=== PATIENT | male | born 1990 | race Caucasian/White ===

== ENCOUNTER 2020-05-07 10:32 | Outpatient (CLI) | payer OTHER, SELFPAY ==
[2020-05-07 13:08] LABS: Liquefaction Semen Complete in 30 min. (<30 minutes); Semen Viscosity Not Increased (Not Increa.)
[2020-05-07 13:09] LABS: Semen Color Opaque (Grey-opaque); Semen Immotility 40 %; Semen Morphology Result to Follow; Semen Non-Progressive Motility 10 %; Semen Progressive Motility 60 % (>32); Semen Total Motility 70 (>40% (PM+NP)); Sperm Count 127.6 Mil/mL (60-150 million/mL)
[2020-05-11 14:15] LABS: Fructose, Semen 230 mg/dL (150-600)
== END 2020-05-07 10:33 | disposition home or self-care (01) ==
LOC: CHSLAB 10:37
PROVIDERS: PCP Nurse Practitioner Family; Visit Provider Advanced Practice Midwife
DX: Z30.09 Encounter for other general counseling and advice on contraception (principal)
CPT/HCPCS: 82757; 88160; 89320

== ENCOUNTER 2021-12-03 18:24 | Inpatient (IN) | payer OTHER, SELFPAY ==
[2021-12-03] VITALS (24 sets, daily range): BP systolic 98–142; BP diastolic 34–95; PULSE 78–93; RESP 16–22; TEMP 36.3–36.6; O2SAT 97–100; BMI 29.4
--- NOTE | ~2021-12-03 | CT_ITS ---
EXAMINATION: CT abdomen pelvis wo con DATE: 12/03/2021 19:54 INDICATION: Epigastric abdominal pain, vomiting. Elevated serum lipase. TECHNIQUE: Computed tomography (CT) of the abdomen and pelvis was performed without intravenous contr ast. Automated exposure control and iterative reconstruction technique were employed. Exam dose: 701 .87 mGy-cm total exam DLP. COMPARISON: None. FINDINGS: The lung bases are clear. Normal heart size. No pericardial or pleural effusion. There is diffuse hepatic steatosis. No hepatic space-occupying mass lesion is detected. The gallbladd er is present. No pericholecystic fluid or fat stranding. No bile duct or pancreatic duct dilatation. No pancreatic mass lesion or calcification. Normal splenic size. Normal morphology of the adrenal glands. No renal mass lesion or urinary tract calculus or hydroureteronephrosis. The urinary bladder, prostat e gland and seminal vesicles are unremarkable. Probable appendectomy. No bowel obstruction or intraperitoneal free air. Normal caliber of the abdominal aorta. No intraperitoneal or retroperitoneal or pelvic mass lesion or adenopathy or ascites. Very small fat-containing umbilical hernia. IMPRESSION: Hepatic steatosis Probable appendectomy Negative CT scan of the abdomen does not exclude pancreatitis. Reviewed, dictated and finalized at [facility]. Reviewed, dictated and finalized at [facility].
--- NOTE | ~2021-12-03 | US_ITS ---
EXAMINATION: US renal BI DATE: 12/04/2021 08:42 INDICATION: Acute kidney injury TECHNIQUE: Multiple grayscale and Doppler ultrasound images of the kidneys were obtained. COMPARISON: None. FINDINGS: The right kidney measures 12.5 x 6.4 x 7.3 cm. The left kidney measures 12.7 x 5.7 x 5.2 cm . The kidneys demonstrate normal parenchymal echogenicity. There is no hydronephrosis. The bladder is normal. IMPRESSION: 1. Normal kidneys without hydronephrosis. Reviewed, dictated and finalized at [facility].
[2021-12-03 18:52] LABS: Basophils Percent Auto 0.2 % (0.2-1.2); Eosinophils Percent Auto 0.1 % (0-4.4); Hematocrit 39.6 % (42.0-52.0); Hemoglobin 14.2 g/dL (14.0-18.0); Immature Granulocyte Absolute 0.04 K/mm3 (0.00-0.031); Immature Granulocyte Percent A 0.5 % (0-0.5); Lymphocytes Absolute Auto 0.53 K/mm3 (0.9-3.2); Mean Corpuscular HGB Conc 35.9 g/dl (32-36); Mean Corpuscular Hemoglobin 33.2 pg (26-34); Mean Corpuscular Volume 92.5 fl (80-100); Mean Platelet Volume 10.4 fl (7.4-10.4); Monocytes Absolute Auto 0.5 K/mm3 (0.1-0.6); Monocytes Percent Auto 5.2 % (2.6-8.5); Neutrophils Absolute Auto 7.8 K/mm3 (1.3-6.7); Platelet Count Result 260 k/mm3 (150-375); Red Blood Count 4.28 M/mm3 (4.6-6.20); Red Cell Distribution Width 10.9 % (11.5-14.5); White Blood Count 8.9 K/mm3 (4.5-10.0)
[2021-12-03 19:03] LABS: Appearance Urine Slightly Cloudy (Clear); Bilirubin Urine 2+ (Negative); Blood Urine Negative (Negative); Color Urine Yellow (Yellow); Glucose Urine UA Negative (Negative); Ketones Urine Trace mg/dL (Negative); Leukocyte Esterase Ur Negative LEU/UL (Negative); Nitrate Urine Negative (Negative); Protein Urine 2+ mg/dL (Negative); Specific Grav Ur >= 1.030 (1.001-1.035); Urobilinogen Urine 0.2 mg/dL (<2.0)
[2021-12-03 19:11] LABS: Hyaline Casts Urine 30-49 /lpf; Mucus Urine Rare /lpf; Squamous Epithelial Cell Urine Rare /hpf (Few)
--- NOTE | 2021-12-03 19:11 | ED.ABDPAIN ---
HPI - Abdominal Pain General Chief Complaint: Headache <KAYLA Zurita Last Filed: 12/04/21 01:31> Stated Complaint: N/V X6 DAYS <KAYLA uZrita Last Filed: 12/04/21 01:31> Time Seen by Provider: 12/03/21 18:37 <KAYLA Zurita Last Filed: 12/04/21 01:31> Source: patient <KAYLA Zurita Last Filed: 12/04/21 01:31> Mode of arrival: ambulatory <KAYLA Zurita Last Filed: 12/04/21 01:31> Limitations: no limitations <KAYLA Zurita Last Filed: 12/04/21 01:31> History of Present Illness HPI narrative: This is a 31 year old male that presents to the ER for epigastric pain ongoing over the last couple of days. Associated with nausea and vomiting. Denies fever, diarrhea, or dysuria. <KAYAL Zurita Last Filed: 12/04/21 01:31> Related Data Home Medications: Home Medications Medication Instructions Recorded Confirmed levetiracetam 750 mg tablet 750 mg PO BID 12/03/21 12/03/21 lisinopril 10 mg tablet 10 mg PO DAILY 12/03/21 12/03/21 <KAYLA Zurita Last Filed: 12/04/21 01:31> Allergies/Adverse Reactions: Allergies Allergy/AdvReac Type Severity Reaction Status Date / Time No Known Allergies Allergy Verified 12/03/21 18:33 <KAYLA Zurita Last Filed: 12/04/21 01:31> Review of Systems Review of Systems: All systems reviewed & are unremarkable except as noted in HPI and below <KAYLA Zruita Last Filed: 12/04/21 01:31> Constitutional: Constitutional: Denies fever(s) <KAYLA Zurita Last Filed: 12/04/21 01:31> Cardiovascular: Cardiovascular: Denies chest pain <KAYLA Zurita Last Filed: 12/04/21:31> Respiratory: Respiratory: Denies dyspnea <Elke Ramos PA-C - Last Filed: 12/04/21 01:31> Gastrointestinal: Gastrointestinal: Reports abdominal pain, Denies diarrhea, Reports nausea and Reports vomiting <Elke Ramos PA-C - Last Filed: 12/04/21 01:31> Genitourinary: Genitourinary: Denies dysuria <Elke Ramos PA-C - Last Filed: 12/04/21 01:31> PMFSH Past Medical History Medical History: Medical History (Updated 12/03/21 @ 21:19 by Elke Ramos PA-C) History of hypertension History of seizure disorder <Elke Ramos PA-C - Last Filed: 12/04/21 01:31> Surgical History Surgical History: Surgical History (Updated 12/03/21 @ 19:11 by Elke Ramos PA-C) History of appendectomy <Elke Ramos PA-C - Last Filed: 12/04/21 01:31> Family History Family History: Family History (Updated 12/03/21 @ 23:25 by Luz See RN) Other No pertinent family history <Elke Ramos PA-C - Last Filed: 12/04/21 01:31> Social History Social History: Social History (Updated 12/03/21 @ 19:11 by Elke Ramos PA-C) Smoking status: Never smoker Alcohol intake: current Drinks per week: 20 Substance use: never Spiritual care concerns: No <Elke Ramos PA-C - Last Filed: 12/04/21 01:31> Exam Const: General: healthy appearing and no acute distress <Elke Ramos PA-C - Last Filed: 12/04/21 01:31> Nutritional Appearance: well nourished <Elke Ramos PA-C - Last Filed: 12/04/21:31> Resp: Auscultation: clear to auscultation bilaterally <Elke Ramos PA-C - Last Filed: 12/04/21 01:31> Cardio: Rate: regular rate <KAYLA Zurita Last Filed: 12/04/21 01:31> Rhythm: regular rhythm <KAYLA Zurita Last Filed: 12/04/21 01:31> Heart sounds: no murmurs <KAYLA Zurita Last Filed: 12/04/21 01:31> GI: GI Palp: Yes Soft to palpation and Yes Tenderness to palpation present (GI) (to palpation in the epigastrium) <KAYLA Zurita Last Filed: 12/04/21 01:31> Auscultation: normal bowel sounds <KAYLA Zurita Last Filed: 12/04/21 01:31> Skin: General skin exam: normal color <KAYLA Zurita Last Filed: 12/04/21 01:31> N
[2021-12-03 19:12] LABS: Add Urine Microscopic? YES
[2021-12-03] MEDS: ONDANSETRON INJ 4 MG/2 ML VIAL IV PUSH (19:19)
[2021-12-03] MEDS: PANTOPRAZOLE SODIUM IV 40 MG VIAL IV PUSH (19:19)
[2021-12-03] MEDS: SODIUM CHLORIDE 0.9% IV 1,000 ML 999 ML IV CONT ×2 (19:20→20:00)
[2021-12-03 19:28] LABS: Influenza A QL RT-PCR Negative (Negative); Influenza B QL RT-PCR Negative (Negative); SARS-CoV-2 RNA PCR Negative
[2021-12-03 19:32] LABS: Alanine Aminotransferase 32 U/L (6-50); Albumin Level 5.6 g/dL (3.5-5.1); Alkaline Phosphatase 80 U/L (38-126); Anion Gap 37 mmol/L (8-16); Aspartate Amino Transferase 21 U/L (17-59); Bilirubin,Total 0.9 mg/dL (0.2-1.3); Blood Urea Nitrogen 117 mg/dL (9-20); Calcium 9.6 mg/dL (8.4-10.2); Carbon Dioxide 10 mmol/L (22-30); Chloride 78 mmol/L (98-107); Estimated CRCL calculation 6 ml/min; Estimated Glomerular Filt Rate 3; Glucose 91 mg/dL (65-110); Lipase 1258 U/L (23-300); Potassium 5.5 mmol/L (3.4-5.0); Sodium 125 mmol/L (137-145)
[2021-12-03 19:41] LABS: Ethanol < 10 mg/dL (<10)
[2021-12-03 19:41] LABS: INR 1.1; Partial Thromboplastin Time 30.8 SECONDS (22.3-36.8); Prothrombin Time 13.6 Seconds (11.1-14.7)
--- NOTE | 2021-12-03 20:07 | ECG_ITS ---
Measurements Intervals [place] Rate: 87 P: 70 [place]: 176 QRS: 55 QRSD: 113 T: 30 QT: 373 QTc: 451 Interpretive Statements SINUS RHYTHM INTRAVENTRICULAR CONDUCTION DELAY PEAKED T-WAVES, SUGGESTS HYPERKALEMIA ABNORMAL ECG NO PREVIOUS ECG AVAILABLE FOR COMPARISON Electronically Signed On 12-04-2021 7:05:52 CDT by Ian Duron D.O.
[2021-12-03] MEDS: DEXTROSE 50% 25 GM/50 ML SYRINGE IV PUSH (20:24)
[2021-12-03] MEDS: INSULIN HUMAN REGULAR (*BKC) 100 UNITS/ML 10 UNITS IV PUSH (20:24)
[2021-12-03] MEDS: SODIUM BICARBONATE 8.4% 50 MEQ/50 ML SYRINGE IV PUSH (20:25)
[2021-12-03] MEDS: CALCIUM GLUCONATE 1,000 MG/10 ML VIAL 1000 MG IV PUSH (20:25)
[2021-12-03 21:37] LABS: Alveolar/Arterial O2 Gradient 25.2 mmHg; Base Excess ABG -13.4 mEq/l (+/-2.0); Carboxyhemoglobin 0.3 % THb (0-2.0); Fractional Inspired Oxygen 21 %; HCO3 ABG 11.3 mEq/l (22.0-26.0); Methemoglobin ABG 0.4 %THb (0-1.5); Oxygen Content ABG 17.1 %vol (16.0-22.0); Oxygen Saturation ABG 96.8 % (95.0-100.0); Oxyhemoglobin 95.1 % THb (90.0-100.0); PO2 ABG 96.2 mmHg (80.0-100.0); PO2 FiO2 Ratio Arterial Blood 4.58 %; Reduced Hemoglobin 4.2 %THb (0-5.0); Total Hemoglobin 12.7 g/dL (12.0-18.0)
[2021-12-03 21:39] LABS: Device ROOM AIR; Modified Allen's Test Pass; PCO2 ABG 23.7 mmHg (35.0-45.0); Site Drawn RIGHT RADIAL; pH ABG 7.295 (7.350-7.450)
[2021-12-03] MEDS: THIAMINE HCL 200 MG/2 ML VIAL 100 MG IV PUSH (21:53)
[2021-12-03 22:10] LABS: Lactic Acid Reflex 0.7 mmol/L (0.7-2.0)
[2021-12-03 22:12] LABS: Creatine Kinase 83 U/L (55-170)
--- NOTE | 2021-12-03 22:24 | PM.IMHP ---
H&P: HPI History of Present Illness Date/Time: 12/03/21 22:24 Chief Complaint: nausea and vomiting Narrative: This is a 31-year-old male with past medical history significant for alcohol dependence, patient drinks a pt of vodka daily. Patient presents to the emergency room due to nausea vomiting and lately dry heaving for the last 4 days or so unable to keep anything down has not been eating for the last 4 days or so or drinking however try to help with Gatorade and Pedialyte was having muscle cramps, also noted decreased urine output. Patient denies any pain, no fevers, no rigors, no chills, no rashes, no joint pain, no joint swelling, no cough, no sputum production, no swelling. preliminary workup was significant for chemistry panel sodium 125, potassium 5.5, chloride 78 bicarb 10 anion gap 37 BUN 117, creatinine 18 albumin 5.6 lipase is 1258, lactic acid is 0.7, ABG show pH of 7.295, pCO2 of 23, PO2 96, hemoglobin [address] of abdomen and pelvis was reported as: IMPRESSION:? Hepatic steatosis Probable appendectomy Negative CT scan of the abdomen does not exclude pancreatitis. urinalysis was significant for 2+ protein mg/dL Wen RBC 3-5, per high-power field, WBC 4-6, hyaline cast 30-49 Review of Systems Review of Systems: muscle cramps, dry heaving, nausea, vomiting, unable to keep anything down, for several days Constitutional: Constitutional: Denies chills, Denies fever(s), Denies malaise, Denies night sweats, Reports poor appetite and Denies weakness Eyes: Eyes: Denies change in vision ENT: Denies dysphagia, Denies vertigo, Denies dizziness, Denies odynophagia and Denies sore throat Cardiovascular: Cardiovascular: Denies chest pain, Denies irregular heart rhythm, Denies lightheadedness, Denies palpitations and Denies dyspnea on exertion Respiratory: Respiratory: Denies chest congestion, Denies cough, Denies pain on inspiration, Denies dyspnea, Denies dyspnea on exertion and Denies wheezing Gastrointestinal: Gastrointestinal: Denies abdominal pain, Denies dyspepsia, Denies heartburn, Denies diarrhea, Reports nausea and Reports vomiting Genitourinary: Genitourinary: Denies dysuria Musculoskeletal: Musculoskeletal: Reports muscle cramps Integumentary/Breasts: Skin/Breast: Denies rash Neurologic: Denies vertigo, Denies dizziness, Denies focal weakness and Denies Sensory deficit (Neuro) Psychiatric: Psychiatric: Reports no additional psychiatric complaints and Reports as per HPI Endocrine: Endocrine: Denies cold intolerance, Denies fatigue, Denies flushing, Denies heat intolerance, Denies polyphagia, Denies polydipsia and Denies palpitations Allergic/Immunologic: Allergic/Immunologic: Reports no additional allergic/immunologic complaints and Reports as per HPI PMFSH Past Medical History Medical History (Updated 12/04/21 @ 02:43 by Jimmie Rankin MD) History of hypertension History of seizure disorder Surgical History Surgical History (Updated 12/03/21 @ 19:11 by Elke Ramos PA-C) History of appendectomy Family History Family History (Updated 12/03/21 @ 23:25 by Luz See RN) Other No pertinent family history Social History Social History (Updated 12/03/21 @ 19:11 by Elke Ramos PA-C) Smoking status: Never smoker Alcohol intake: current Drinks per week: 20 Substance use: never Spiritual care concerns: No Meds Home Medications and Allergies Home Medications Medication Instructions Recorded Confirmed Type levetiracetam 750 mg tablet 750 mg PO BID 12/03/21 12/03/21 History lisinopril 10 mg tablet 10 mg PO DAILY 12/03/21 12/03/21 History Allergies Allergy/AdvReac Type Severity Reaction Status Date / Time No Known Allergies Allergy Verified 12/03/21 18:33 Vital Signs Vital Signs - 24 hr 12/03/21 18:26 12/03/21 19:18 12/03/21 20:00 Temperature 97.3 F L Pulse Rate 92 81 84 Respiratory Rate 16 17 18 Blood Pressure
[2021-12-03] MEDS: SODIUM BICARBONATE 8.4% 100 MEQ in DEXTROSE 5% 1,000 ML 1,000 ML 150 MEQ IV CONT (22:36)
--- NOTE | 2021-12-03 23:00 | ADMGEN ---
This patient, Rudi Eagle, was admitted to IMU Room 201-01. Patient/family oriented to hospital policies and general routines including ID bracelet, bed and alarms, visiting hours, pain management, procedures, bathroom and other care routines, personal items, smoking policy, room service/diet, and visiting hours. Information on how to activate the Rapid Response Team has been discussed. Patient/Family are encouraged to report perceived risks to care and to ask questions if they do not understand what they are told or what they should do.
[2021-12-03 23:46] LABS: Basophils Percent Auto 0.3 % (0.2-1.2); Eosinophils Percent Auto 0.2 % (0-4.4); Hematocrit 35.6 % (42.0-52.0); Hemoglobin 12.6 g/dL (14.0-18.0); Immature Granulocyte Absolute 0.04 K/mm3 (0.00-0.031); Immature Granulocyte Percent A 0.6 % (0-0.5); Lymphocytes Absolute Auto 0.69 K/mm3 (0.9-3.2); Lymphocytes Percent Auto 10.9 % (18.3-44.2); Mean Corpuscular HGB Conc 35.4 g/dl (32-36); Mean Corpuscular Volume 93.2 fl (80-100); Mean Platelet Volume 10.6 fl (7.4-10.4); Monocytes Absolute Auto 0.5 K/mm3 (0.1-0.6); Monocytes Percent Auto 7.9 % (2.6-8.5); Neutrophils Absolute Auto 5.1 K/mm3 (1.3-6.7); Neutrophils Percent Auto 80.1 % (45.5-73.1); Platelet Count Result 225 k/mm3 (150-375); Red Blood Count 3.82 M/mm3 (4.6-6.20); White Blood Count 6.3 K/mm3 (4.5-10.0)
[2021-12-04] VITALS (13 sets, daily range): BP systolic 117–137; BP diastolic 56–97; PULSE 65–85; RESP 20; TEMP 36–36.8; O2SAT 98–100
[2021-12-04 00:01] LABS: Alanine Aminotransferase 27 U/L (6-50); Albumin Level 4.7 g/dL (3.5-5.1); Alkaline Phosphatase 63 U/L (38-126); Anion Gap 26 mmol/L (8-16); Aspartate Amino Transferase 15 U/L (17-59); Blood Urea Nitrogen 113 mg/dL (9-20); Calcium 8.9 mg/dL (8.4-10.2); Carbon Dioxide 14 mmol/L (22-30); Chloride 86 mmol/L (98-107); Glucose 94 mg/dL (65-110); Potassium 4.7 mmol/L (3.4-5.0); Sodium 126 mmol/L (137-145)
[2021-12-04 01:00] LABS: Estimated CRCL calculation 8 ml/min; Estimated Glomerular Filt Rate 4
[2021-12-04] MEDS: SODIUM BICARBONATE 8.4% 100 MEQ in DEXTROSE 5% 1,000 ML 1,000 ML 150 MEQ IV CONT ×2 (05:30→12:07)
[2021-12-04 05:32] LABS: Hematocrit 33.7 % (42.0-52.0); Hemoglobin 12.2 g/dL (14.0-18.0); Mean Corpuscular HGB Conc 36.2 g/dl (32-36); Mean Corpuscular Hemoglobin 32.7 pg (26-34); Mean Corpuscular Volume 90.3 fl (80-100); Mean Platelet Volume 11.2 fl (7.4-10.4); Platelet Count Result 228 k/mm3 (150-375); Red Blood Count 3.73 M/mm3 (4.6-6.20); Red Cell Distribution Width 10.7 % (11.5-14.5); White Blood Count 5.6 K/mm3 (4.5-10.0)
[2021-12-04 05:44] LABS: Anion Gap 21 mmol/L (8-16); Blood Urea Nitrogen 110 mg/dL (9-20); Calcium 9.1 mg/dL (8.4-10.2); Carbon Dioxide 18 mmol/L (22-30); Chloride 88 mmol/L (98-107); Estimated CRCL calculation 10 ml/min; Estimated Glomerular Filt Rate 6; Glucose 109 mg/dL (65-110); Potassium 3.8 mmol/L (3.4-5.0); Sodium 127 mmol/L (137-145)
[2021-12-04 06:31] LABS: Magnesium 2.9 mg/dL (1.6-2.3)
[2021-12-04 11:07] LABS: Basophils Percent Auto 0.3 % (0.2-1.2); Eosinophils Percent Auto 0.6 % (0-4.4); Hematocrit 36.5 % (42.0-52.0); Hemoglobin 13.2 g/dL (14.0-18.0); Immature Granulocyte Absolute 0.02 K/mm3 (0.00-0.031); Immature Granulocyte Percent A 0.3 % (0-0.5); Lymphocytes Absolute Auto 1.12 K/mm3 (0.9-3.2); Lymphocytes Percent Auto 17.3 % (18.3-44.2); Mean Corpuscular HGB Conc 36.2 g/dl (32-36); Mean Corpuscular Volume 91.3 fl (80-100); Mean Platelet Volume 11.1 fl (7.4-10.4); Monocytes Absolute Auto 0.7 K/mm3 (0.1-0.6); Monocytes Percent Auto 10.4 % (2.6-8.5); Neutrophils Absolute Auto 4.6 K/mm3 (1.3-6.7); Neutrophils Percent Auto 71.1 % (45.5-73.1); Platelet Count Result 258 k/mm3 (150-375); White Blood Count 6.5 K/mm3 (4.5-10.0)
[2021-12-04 11:20] LABS: Alanine Aminotransferase 29 U/L (6-50); Albumin Level 4.9 g/dL (3.5-5.1); Alkaline Phosphatase 67 U/L (38-126); Anion Gap 18 mmol/L (8-16); Aspartate Amino Transferase 20 U/L (17-59); Bilirubin,Total 1.3 mg/dL (0.2-1.3); Blood Urea Nitrogen 105 mg/dL (9-20); Calcium 9.7 mg/dL (8.4-10.2); Carbon Dioxide 24 mmol/L (22-30); Chloride 88 mmol/L (98-107); Estimated CRCL calculation 16 ml/min; Estimated Glomerular Filt Rate 10; Glucose 108 mg/dL (65-110); Lipase 877 U/L (23-300); Potassium 3.6 mmol/L (3.4-5.0); Sodium 130 mmol/L (137-145)
--- NOTE | 2021-12-04 11:38 | PM.IMPN ---
Progress Note: A&P Assessment and Plan (1) Acute kidney failure: Qualifiers: Acute renal failure type: unspecified Qualified Code(s): N17.9 - Acute kidney failure, unspecified Code(s): N17.9 - Acute kidney failure, unspecified Status: Acute Assessment and Plan: admit to IMU Strict input and output daily urine lytes renal ultrasound in a.m. suspect pre renal azotemia patient also taking lisinopril will hold lisinopril patient normotensive no edema albumin within normal limits hyaline cast present in urine urinalysis with non nephrotic range proteinuria IV fluids + bicarb nephrology consult (2) Acute pancreatitis: Qualifiers: Acute pancreatitis complication: no infection or necrosis Pancreatitis type: alcohol induced Qualified Code(s): K85.20 - Alcohol induced acute pancreatitis without necrosis or infection Code(s): K85.90 - Acute pancreatitis without necrosis or infection, unspecified Status: Acute Assessment and Plan: CT of abdomen and pelvis reviewed supportive care (3) Acute hyperkalemia: Code(s): E87.5 - Hyperkalemia Status: Acute Assessment and Plan: repeat potassium is within normal limits received dextrose, insulin. (4) High anion gap metabolic acidosis: Code(s): E87.2 - Acidosis Status: Acute Assessment and Plan: Likely secondary to acute renal failure resolving (5) Alcohol dependence: Code(s): F10.20 - Alcohol dependence, uncomplicated Status: Acute Assessment and Plan: CIWA protocol as needed Subjective Date/time seen: 12/04/21 11:38 no new complaints Exam Narrative: patient is laying in a stretcher Const: General: cooperative, comfortable, no acute distress, well developed, alert, awake, Physically active and other ( well-appearing) Nutritional Appearance: average body habitus Orientation/consciousness: patient oriented x3 HENMT: Head: normal to inspection, normocephalic and atraumatic Ears: hearing grossly normal bilaterally Face and sinus: normal facial exam Eyes: General: appearance normal, both eyes and all related structures Pupils: Equal, round and reactive pupils present EOM: EOMs intact bilaterally Neck: Neck: full ROM, no lymphadenopathy and no JVD Thyroid: thyroid normal Lymphatic: no lymphadenopathy noted Resp: Effort & Inspection: normal respiratory effort and able to speak in complete sentences Auscultation: clear to auscultation bilaterally Cardio: Jugular venous distension: no JVD Rate: regular rate Rhythm: regular rhythm Heart sounds: S1 normal heart sound present and S2 normal heart sound present GI: Inspection: normal to inspection : General: Yes deferred Skin: Rashes: no rashes Wounds: no wounds Neuro: General: patient oriented x3 and CN's II-XI intact bilaterally Cranial nerves: Yes CN's II-XII intact bilaterally and Yes Equal, round and reactive pupils present Cognition (Neuro): normal cognition Speech: normal speech Gait exam (Neuro): Normal gait present Motor exam (neuro): 5/5 motor strength present throughout Sensory Exam: No Sensory deficit (Neuro) Extrem: General: normal to inspection, full ROM, no joint enlargement and no pedal edema Objective Data Vital Signs Vital Signs: Vital Signs - 24 hr 12/03/21 18:26 12/03/21 19:18 12/03/21 20:00 Temperature 97.3 F L Pulse Rate 92 81 84 Respiratory Rate 16 17 18 Blood Pressure 142/64 H 128/55 L Pulse Oximetry 100 100 100 Oxygen Delivery Room Air 12/03/21 19:30 12/03/21 19:56 12/03/21 19:57 Temperature Pulse Rate 80 Respiratory Rate 22 H Blood Pressure 127/34 L Pulse Oximetry 100 100 100 Oxygen Delivery 12/03/21 20:00 12/03/21 20:01 12/03/21 20:05 Temperature Pulse Rate Respiratory Rate Blood Pressure 128/55 L Pulse Oximetry 100 100 100 Oxygen Delivery 12/03/21 20:22 12/03/21 20:30 12/03/21 20:
--- NOTE | 2021-12-04 12:51 | PM.CNNEP ---
Assessment and Plan Assessment and plan (1) Acute kidney failure: Qualifiers: Acute renal failure type: unspecified Qualified Code(s): N17.9 - Acute kidney failure, unspecified Code(s): N17.9 - Acute kidney failure, unspecified Status: Acute Assessment and Plan: presumably all acute (no history of CKD noted) slow and steady improvement in renal function with IVFs renal ultrasound normal follow-up on urine electrolytes agree with holding TOSHIA-I continue bicarb fluids -- check BMP later this afternoon as may need to change IVFs follow trend of repeat labs (2) Hyponatremia: Code(s): E87.1 - Hypo-osmolality and hyponatremia Status: Acute Assessment and Plan: related to hypovolemia (although beer potomania may be playing a role) follow-up on urine electrolytes slow improvement noted with IVFs follow trend (3) Acute pancreatitis: Qualifiers: Acute pancreatitis complication: no infection or necrosis Pancreatitis type: alcohol induced Qualified Code(s): K85.20 - Alcohol induced acute pancreatitis without necrosis or infection Code(s): K85.90 - Acute pancreatitis without necrosis or infection, unspecified Status: Acute Assessment and Plan: CT of abdomen and pelvis reviewed follow lipase supportive therapy (4) Acute hyperkalemia: Code(s): E87.5 - Hyperkalemia Status: Acute Assessment and Plan: resolved s/p medical management follow repeat levels (5) High anion gap metabolic acidosis: Code(s): E87.2 - Acidosis Status: Acute Assessment and Plan: secondary to acute renal failure improving with resolving GRIS and bicarb IVFs follow repeat CO2 levels (6) Alcohol dependence: Code(s): F10.20 - Alcohol dependence, uncomplicated Status: Acute Assessment and Plan: as noted by history CIWA protocol as needed Will continue to follow. History of Present Illness Reason for Consult Consult date: 12/04/21 Reason for consult: acute renal failure Chief Complaint Chief complaint: acute kidney failure,pancreatitis History of Present Illness Narrative: The patient is a 31 Here old male with a past medical history as outlined below who presented to [facility] Emergency room with complaints of nausea and vomiting. The patient states that the nausea vomiting as well as recent dry heaving have been going on for last 4 days if not longer. He has been unable to keep anything down and reports no significant oral intake in this time frame as well. He states that he has been trying to drink specifically Gatorade and Pedialyte but this has been somewhat challenging as well. Accompanying these symptoms the fact he has also noticed his urine output has been somewhat decreased but he just assumed was because he was not eating and drinking as well as he normally does. As the symptoms seem to be progressively getting worse, he presented to the emergency room for further evaluation Workup and evaluation emergency room demonstrated the patient to be hemodynamically stable and in no acute distress. He gave no symptoms of fevers, chills, rigors, joint pain, dizziness, lightheadedness, or palpitations. Routine blood test demonstrated significant renal dysfunction with a BUN of 117 and a creatinine of 18 in association with a elevated albumin and lipase. His CBC was unremarkable and her CT scan of the abdomen pelvis did not show any acute intra abdominal pathology although pancreatitis could not be fully ruled out. Given his constellation of symptoms that led to his presentation to the emergency room as well as his significant laboratory abnormalities as mentioned, he was admitted the hospital for further evaluation and therapy. Since his admission, serial repeat labs have shown improvement in his renal function as well as his electrolytes. Furthermore, he appears to be making fair
[2021-12-04 17:10] LABS: Total Protein Urine Random 14 mg/dL; Ur Ttl Prot Creatinine Ratio 0.07 mg/mg (0-0.20)
[2021-12-04 17:17] LABS: Sodium Urine Random 31 meq/L
[2021-12-04 17:52] LABS: Eosinophil Urine None Seen % (None Seen)
[2021-12-04 17:58] LABS: Albumin Level 4.9 g/dL (3.5-5.1); Anion Gap 20 mmol/L (8-16); Blood Urea Nitrogen 108 mg/dL (9-20); Calcium 9.9 mg/dL (8.4-10.2); Carbon Dioxide 23 mmol/L (22-30); Chloride 89 mmol/L (98-107); Estimated CRCL calculation 15 ml/min; Estimated Glomerular Filt Rate 10; Glucose 110 mg/dL (65-110); Phosphorus 6.4 mg/dL (2.5-4.5); Potassium 3.7 mmol/L (3.4-5.0); Sodium 132 mmol/L (137-145)
[2021-12-04] MEDS: SODIUM BICARBONATE 8.4% 100 MEQ in DEXTROSE 5% 1,000 ML 1,000 ML 75 MEQ IV CONT (19:57)
[2021-12-04] MEDS: levETIRAcetam 250 MG TABLET 750 MG PO (23:05)
[2021-12-04 23:44] LABS: Albumin Level 4.7 g/dL (3.5-5.1); Anion Gap 10 mmol/L (8-16); Blood Urea Nitrogen 86 mg/dL (9-20); Calcium 9.6 mg/dL (8.4-10.2); Carbon Dioxide 33 mmol/L (22-30); Chloride 91 mmol/L (98-107); Estimated CRCL calculation 49 ml/min; Estimated Glomerular Filt Rate 38; Glucose 116 mg/dL (65-110); Phosphorus 3.7 mg/dL (2.5-4.5); Potassium 4.1 mmol/L (3.4-5.0); Sodium 134 mmol/L (137-145)
[2021-12-05] VITALS (7 sets, daily range): BP systolic 119–136; BP diastolic 61–75; PULSE 60–96; RESP 20–22; TEMP 36.6–36.7; O2SAT 98–100
[2021-12-05] MEDS: SODIUM CHLORIDE 0.9% IV 1,000 ML 75 ML IV CONT (04:25)
[2021-12-05 07:11] LABS: Basophils Percent Auto 0.7 % (0.2-1.2); Eosinophils Absolute Auto 0.1 K/mm3 (0-0.3); Eosinophils Percent Auto 1.6 % (0-4.4); Hematocrit 39.4 % (42.0-52.0); Hemoglobin 13.9 g/dL (14.0-18.0); Immature Granulocyte Absolute 0.02 K/mm3 (0.00-0.031); Immature Granulocyte Percent A 0.5 % (0-0.5); Lymphocytes Absolute Auto 1.21 K/mm3 (0.9-3.2); Lymphocytes Percent Auto 27.6 % (18.3-44.2); Mean Corpuscular HGB Conc 35.3 g/dl (32-36); Mean Corpuscular Hemoglobin 32.7 pg (26-34); Mean Corpuscular Volume 92.7 fl (80-100); Mean Platelet Volume 10.8 fl (7.4-10.4); Monocytes Absolute Auto 0.6 K/mm3 (0.1-0.6); Monocytes Percent Auto 13.2 % (2.6-8.5); Neutrophils Absolute Auto 2.5 K/mm3 (1.3-6.7); Neutrophils Percent Auto 56.4 % (45.5-73.1); Platelet Count Result 232 k/mm3 (150-375); Red Blood Count 4.25 M/mm3 (4.6-6.20); White Blood Count 4.4 K/mm3 (4.5-10.0)
[2021-12-05 07:30] LABS: Alanine Aminotransferase 43 U/L (6-50); Albumin Level 4.9 g/dL (3.5-5.1); Alkaline Phosphatase 67 U/L (38-126); Anion Gap 15 mmol/L (8-16); Aspartate Amino Transferase 41 U/L (17-59); Bilirubin,Total 1.2 mg/dL (0.2-1.3); Blood Urea Nitrogen 73 mg/dL (9-20); Calcium 9.9 mg/dL (8.4-10.2); Carbon Dioxide 33 mmol/L (22-30); Chloride 88 mmol/L (98-107); Estimated CRCL calculation 68 ml/min; Estimated Glomerular Filt Rate 55; Glucose 93 mg/dL (65-110); Lipase 829 U/L (23-300); Potassium 4.1 mmol/L (3.4-5.0); Sodium 136 mmol/L (137-145)
--- NOTE | 2021-12-05 11:10 | PM.IMPN ---
Progress Note: A&P Assessment and Plan (1) Acute kidney failure: Qualifiers: Acute renal failure type: unspecified Qualified Code(s): N17.9 - Acute kidney failure, unspecified Code(s): N17.9 - Acute kidney failure, unspecified Status: Acute Assessment and Plan: Multifactorial with dehydration, alcohol intoxication, lisinopril exposure. Much improved with IV fluids tolerating diet. Creatinine 1.5. Likely discharge in 1-2 days. (2) Acute pancreatitis: Qualifiers: Acute pancreatitis complication: no infection or necrosis Pancreatitis type: alcohol induced Qualified Code(s): K85.20 - Alcohol induced acute pancreatitis without necrosis or infection Code(s): K85.90 - Acute pancreatitis without necrosis or infection, unspecified Status: Acute Assessment and Plan: Patient does have ongoing elevation of lipase. Minimal abdominal pain. Recheck lipase in the morning. Likely discharge if stable or trending down. (3) Acute hyperkalemia: Code(s): E87.5 - Hyperkalemia Status: Acute Assessment and Plan: Resolved (4) High anion gap metabolic acidosis: Code(s): E87.2 - Acidosis Status: Acute Assessment and Plan: resolved (5) Alcohol dependence: Code(s): F10.20 - Alcohol dependence, uncomplicated Status: Acute Assessment and Plan: CIWA protocol as needed lengthy discussion about cessation. Plan Likely discharge tomorrow Subjective Date/time seen: 12/05/21 11:10 no complaints today. Tolerating a diet. Lipase still a little elevated. Improving overall. Creatinine also improving. Exam Narrative: patient is laying in a stretcher Const: General: cooperative, comfortable, no acute distress, well developed, alert, awake, Physically active and other ( well-appearing) Nutritional Appearance: average body habitus Orientation/consciousness: patient oriented x3 HENMT: Head: normal to inspection, normocephalic and atraumatic Ears: hearing grossly normal bilaterally Face and sinus: normal facial exam Eyes: General: appearance normal, both eyes and all related structures Pupils: Equal, round and reactive pupils present EOM: EOMs intact bilaterally Neck: Neck: full ROM, no lymphadenopathy and no JVD Thyroid: thyroid normal Lymphatic: no lymphadenopathy noted Resp: Effort & Inspection: normal respiratory effort and able to speak in complete sentences Auscultation: clear to auscultation bilaterally Cardio: Jugular venous distension: no JVD Rate: regular rate Rhythm: regular rhythm Heart sounds: S1 normal heart sound present and S2 normal heart sound present GI: Inspection: normal to inspection : General: Yes deferred Skin: Rashes: no rashes Wounds: no wounds Neuro: General: patient oriented x3 and CN's II-XI intact bilaterally Cranial nerves: Yes CN's II-XII intact bilaterally and Yes Equal, round and reactive pupils present Cognition (Neuro): normal cognition Speech: normal speech Gait exam (Neuro): Normal gait present Motor exam (neuro): 5/5 motor strength present throughout Sensory Exam: No Sensory deficit (Neuro) Extrem: General: normal to inspection, full ROM, no joint enlargement and no pedal edema Objective Data Vital Signs Vital Signs: Vital Signs - 24 hr 12/04/21 12:28 12/04/21 12:00 12/04/21 16:00 Temperature 97.5 F L Pulse Rate 85 77 65 Respiratory Rate 20 Blood Pressure 133/62 Pulse Oximetry 100 Oxygen Delivery 12/04/21 17:36 12/04/21 19:57 12/04/21 20:00 Temperature 97.8 F 96.8 F L Pulse Rate 80 68 68 Respiratory Rate 20 20 Blood Pressure 121/73 137/97 H Pulse Oximetry 100 100 Oxygen Delivery 12/04/21 20:00 12/05/21 00:00 12/05/21 04:00 Temperature Pulse Rate 68 65 83 Respiratory Rate 20 Blood Pressure Pulse Oximetry 100 Oxygen Delivery Room Air 12/05/21 08:19 12/05/21 08:00 Temperature 97.9 F
--- NOTE | 2021-12-05 11:41 | PM.PNNEP ---
Progress Note: A&P Assessment and Plan (1) Acute kidney failure: Qualifiers: Acute renal failure type: unspecified Qualified Code(s): N17.9 - Acute kidney failure, unspecified Code(s): N17.9 - Acute kidney failure, unspecified Status: Acute Assessment and Plan: presumably all acute (no history of CKD noted) slow and steady improvement in renal function with IVFs renal ultrasound normal urine electrolytes c/w prerenal azotemia agree with holding TOSHIA-I switched to normal saline IVFs since acidosis corrected follow trend of repeat labs (2) Hyponatremia: Code(s): E87.1 - Hypo-osmolality and hyponatremia Status: Acute Assessment and Plan: related to hypovolemia (although beer potomania may be playing a role)s improvement noted with IVFs follow trend (3) Acute pancreatitis: Qualifiers: Acute pancreatitis complication: no infection or necrosis Pancreatitis type: alcohol induced Qualified Code(s): K85.20 - Alcohol induced acute pancreatitis without necrosis or infection Code(s): K85.90 - Acute pancreatitis without necrosis or infection, unspecified Status: Acute Assessment and Plan: CT of abdomen and pelvis reviewed follow lipase levels supportive therapy (4) Acute hyperkalemia: Code(s): E87.5 - Hyperkalemia Status: Acute Assessment and Plan: resolved s/p medical management follow repeat levels (5) High anion gap metabolic acidosis: Code(s): E87.2 - Acidosis Status: Acute Assessment and Plan: secondary to acute renal failure improving with resolving GRIS and s/p bicarb IVFs follow repeat CO2 levels (6) Alcohol dependence: Code(s): F10.20 - Alcohol dependence, uncomplicated Status: Acute Assessment and Plan: as noted by history CIWA protocol as needed Will continue to follow. Subjective Date/time seen: 12/05/21 11:41 Appears to be doing reasonably well; continues to make good urine output with IVFs with steady improvement in renal function as well; no apparent distress noted; able to tolerate oral intake at this time; no apparent distress noted. Exam Narrative: General: WD/WN male in NAD Heart: normal S1 and S2; no rub Lungs: clear to auscultation Abdomen: soft, nontender, nondistended, positive bowel sounds Extremities: no cyanosis or clubbing; no edema Skin: warm and dry Objective Data Vital Signs Vital Signs: Vital Signs Temp Pulse Resp BP Pulse Ox O2 Del Method 12/05/21 08:00 68 12/05/21 08:00 Room Air 12/05/21 08:19 36.6 C 96 20 134/61 98 12/05/21 04:00 83 12/05/21 00:00 65 12/04/21 20:00 68 20 100 Room Air 12/04/21 20:00 68 12/04/21 19:57 36.0 C L 68 20 137/97 H 100 12/04/21 17:36 36.6 C 80 20 121/73 100 12/04/21 16:00 65 Intake/Output Intake/Output: Intake & Output 12/02/21 12/03/21 12/04/21 12/05/21 23:59 23:59 23:59 23:59 Intake Total 2100 3660 890 Output Total 600 3850 826 Balance 1500 -190 64 Meds/Results Medications: Active Medications Generic Name Dose Route Start Last Admin Trade Name Freq PRN Reason Stop Dose Admin Sodium Chloride 1,000 mls @ 75 mls/hr 12/05/21 04:20 12/05/21 04:25 Normal Saline Iv IV CONT 75 mls/hr .[id number] QUIRINO Administration Levetiracetam 750 mg 12/05/21 00:00 12/04/21 23:05 Levetiracetam 250 Mg Tablet PO 750 mg Q12H QUIRINO Administration Radiology Results: ITS Impressions Abdomen/Pelvis CT 12/03/21 20:02 IMPRESSION: Hepatic steatosis Probable appendectomy Negative CT scan of the abdomen does not exclude pancreatitis. Renal Ultrasound 12/04/21 08:50 IMPRESSION: 1. Normal kidneys without hydronephrosis. Labs Labs: Laboratory Tests 12/05/21 06:59 12/05/21 06:59
--- NOTE | 2021-12-05 11:41 | P.PNNP_ITS ---
Progress Note: A&P Assessment and Plan (1) Acute kidney failure: Qualifiers: Acute renal failure type: unspecified Qualified Code(s): N17.9 - Acute kidney failure, unspecified Code(s): N17.9 - Acute kidney failure, unspecified Status: Acute Assessment and Plan: * presumably all acute (no history of CKD noted) * slow and steady improvement in renal function with IVFs * renal ultrasound normal * urine electrolytes c/w prerenal azotemia * agree with holding TOSHIA-I * switched to normal saline IVFs since acidosis corrected * follow trend of repeat labs (2) Hyponatremia: Code(s): E87.1 - Hypo-osmolality and hyponatremia Status: Acute Assessment and Plan: * related to hypovolemia (although beer potomania may be playing a role)s * improvement noted with IVFs * follow trend (3) Acute pancreatitis: Qualifiers: Acute pancreatitis complication: no infection or necrosis Pancreatitis type: alcohol induced Qualified Code(s): K85.20 - Alcohol induced acute pancreatitis without necrosis or infection Code(s): K85.90 - Acute pancreatitis without necrosis or infection, unspecified Status: Acute Assessment and Plan: * CT of abdomen and pelvis reviewed * follow lipase levels * supportive therapy (4) Acute hyperkalemia: Code(s): E87.5 - Hyperkalemia Status: Acute Assessment and Plan: * resolved * s/p medical management * follow repeat levels (5) High anion gap metabolic acidosis: Code(s): E87.2 - Acidosis Status: Acute Assessment and Plan: * secondary to acute renal failure * improving with resolving GRIS and s/p bicarb IVFs * follow repeat CO2 levels (6) Alcohol dependence: Code(s): F10.20 - Alcohol dependence, uncomplicated Status: Acute Assessment and Plan: * as noted by history * CIWA protocol as needed Will continue to follow. Subjective Date/time seen: 12/05/21 11:41 Appears to be doing reasonably well; continues to make good urine output with IVFs with steady improvement in renal function as well; no apparent distress no robert; able to tolerate oral intake at this time; no apparent distress noted. Exam Narrative: General: WD/WN male in NAD Heart: normal S1 and S2; no rub Lungs: clear to auscultation Abdomen: soft, nontender, nondistended, positive bowel sounds Extremities: no cyanosis or clubbing; no edema Skin: warm and dry Objective Data Vital Signs Vital Signs: Vital Signs Temp Pulse Resp BP Pulse Ox O2 Del Method 12/05/21 08:00 68 12/05/21 08:00 Room Air 12/05/21 08:19 36.6 C 96 20 134/61 98 12/05/21 04:00 83 12/05/21 00:00 65 12/04/21 20:00 68 20 100 Room Air 12/04/21 20:00 68 12/04/21 19:57 36.0 C L 68 20 137/97 H 100 12/04/21 17:36 36.6 C 80 20 121/73 100 12/04/21 16:00 65 Intake/Output Intake/Output: Intake & Output 12/02/21 12/03/21 12/04/21 12/05/21 23:59 23:59 23:59 23:59 Intake Total 2100 3660 890 Output Total 600 3850 826 Balance 1500 -190 64 Meds/Results Medications: Active Medications Generic Name Dos
[2021-12-05] MEDS: levETIRAcetam 250 MG TABLET 750 MG PO ×2 (13:07→23:10)
[2021-12-06 07:08] LABS: Basophils Percent Auto 0.5 % (0.2-1.2); Eosinophils Absolute Auto 0.2 K/mm3 (0-0.3); Eosinophils Percent Auto 4.2 % (0-4.4); Hemoglobin 13.1 g/dL (14.0-18.0); Immature Granulocyte Absolute 0.01 K/mm3 (0.00-0.031); Immature Granulocyte Percent A 0.2 % (0-0.5); Lymphocytes Absolute Auto 1.47 K/mm3 (0.9-3.2); Lymphocytes Percent Auto 35.9 % (18.3-44.2); Mean Corpuscular HGB Conc 34.5 g/dl (32-36); Mean Corpuscular Hemoglobin 33.2 pg (26-34); Mean Corpuscular Volume 96.4 fl (80-100); Mean Platelet Volume 10.7 fl (7.4-10.4); Monocytes Absolute Auto 0.7 K/mm3 (0.1-0.6); Monocytes Percent Auto 17.1 % (2.6-8.5); Neutrophils Absolute Auto 1.7 K/mm3 (1.3-6.7); Neutrophils Percent Auto 42.1 % (45.5-73.1); Platelet Count Result 205 k/mm3 (150-375); Red Blood Count 3.94 M/mm3 (4.6-6.20); Red Cell Distribution Width 10.8 % (11.5-14.5); White Blood Count 4.1 K/mm3 (4.5-10.0)
[2021-12-06 07:22] LABS: Alanine Aminotransferase 52 U/L (6-50); Albumin Level 4.7 g/dL (3.5-5.1); Alkaline Phosphatase 52 U/L (38-126); Anion Gap 12 mmol/L (8-16); Aspartate Amino Transferase 52 U/L (17-59); Bilirubin,Total 0.8 mg/dL (0.2-1.3); Blood Urea Nitrogen 37 mg/dL (9-20); Calcium 9.9 mg/dL (8.4-10.2); Carbon Dioxide 34 mmol/L (22-30); Chloride 90 mmol/L (98-107); Estimated CRCL calculation 99 ml/min; Estimated Glomerular Filt Rate > 60; Glucose 100 mg/dL (65-110); Lipase 572 U/L (23-300); Potassium 4.3 mmol/L (3.4-5.0); Sodium 136 mmol/L (137-145)
[2021-12-06 07:50] VITALS: BP 137/74; PULSE 50; RESP 20; TEMP 36.7; O2SAT 100
[2021-12-06] MEDS: FOLIC ACID 1 MG TABLET PO (09:11)
[2021-12-06] MEDS: THIAMINE HCL 200 MG/2 ML VIAL 100 MG IV PUSH (09:11)
--- NOTE | 2021-12-06 09:36 | PM.DS ---
DS: Admitting Diagnosis Discharge Date 12/06/21 Admitting Diagnosis Nausea and vomiting DS: Discharge Diagnosis Discharge Diagnosis (1) Acute kidney failure: Qualifiers: Acute renal failure type: unspecified Qualified Code(s): N17.9 - Acute kidney failure, unspecified Code(s): N17.9 - Acute kidney failure, unspecified Status: Acute (2) Acute pancreatitis: Qualifiers: Acute pancreatitis complication: no infection or necrosis Pancreatitis type: alcohol induced Qualified Code(s): K85.20 - Alcohol induced acute pancreatitis without necrosis or infection Code(s): K85.90 - Acute pancreatitis without necrosis or infection, unspecified Status: Acute (3) Acute hyperkalemia: Code(s): E87.5 - Hyperkalemia Status: Acute (4) High anion gap metabolic acidosis: Code(s): E87.2 - Acidosis Status: Acute (5) Alcohol dependence: Code(s): F10.20 - Alcohol dependence, uncomplicated Status: Acute (6) Hyponatremia: Code(s): E87.1 - Hypo-osmolality and hyponatremia Status: Acute DS: Summary Hospital Course Reason for hospitalization: 31-year-old male with a history of alcohol dependence, HTN and seizures presents with complaints of nausea and vomiting. Please see H&P for details Hospital Course: Patient presented to the emergency room with a 4 day history of nausea and vomiting and poor oral intake. Potassium was 5.5. Sodium 125. BUN 117 with creatinine 18. Anion gap was 37. Lipase was 1258. ABG 7.29/23/[address] of the abdomen pelvis did not show pancreatitis radiographically. He did have hepatic steatosis noted. Urine eosinophils were negative. Renal ultrasound showed no acute findings. Nephrology was consulted. Alcohol level is negative. Influenza was negative. COVID was negative. He was started IV fluids and made NPO. He did have an EKG showing peaked T-waves suggesting hyperkalemia. His potassium level however normalized. He remained on telemetry without significant dysrhythmias. Patient's nausea resolved. He was stable to start a diet and this was advanced as he tolerated. His sodium improved to 136 today. His BUN dropped to 37 with a creatinine 1.0. Lipase trended downward as well. LFTs remained within normal limits. He was educated about the benefits of abstaining from alcohol. He overall did well was able to discharge home on 12/06/2021. Status at Discharge Cognitive/behavioral status at discharge: Stable Time Spent with Patient Time attestation: Total time spent providing and/or coordinating discharge services: 32 minutes Time spent: Greater than 30 minutes Exam Narrative: AF 98.1 137/74 50 20 100% room air Gen - NARD Chest - CTA bilaterally, nml RR CV - RRR S1/S2. Abd - Soft, NT/ND, Positive BS Ext - No pedal edema Psych - Nml mood and affect Skin - Warm and dry DS: Data Data Completed and Pending Labs on day of discharge: Labs from last 24 hours 12/06/21 12/06/21 12/06/21 06:57 06:57 06:57 WBC 4.1 L RBC 3.94 L Hgb 13.1 L Hct 38.0 L MCV 96.4 MCH 33.2 MCHC 34.5 RDW 10.8 L Plt Count 205 MPV 10.7 H Immature Gran % (Auto) 0.2 Neut % (Auto) 42.1 L Lymph % (Auto) 35.9 [place] % (Auto) 17.1 H Eos % (Auto) 4.2 Baso % (Auto) 0.5 Lymph # (Auto) 1.47 [place] # (Auto) 0.7 H Eos # (Auto) 0.2 Baso # (Auto) 0.0 Abs Immat Gran (auto) 0.01 Absolute Neuts (auto) 1.7 Absolute Nucleated RBC 0.0 Nucleated RBC % 0.0 Sodium Cancelled 136 L Potassium Cancelled 4.3 Chloride Cancelled 90 L Carbon Dioxide Cancelled 34 H Anion Gap Cancelled 12 BUN Cancelled 37 H D Creatinine Cancelled 1.00 Estim Creat Clear Calc Cancelled 99 Estimated GFR Cancelled > 60 Glucose Cancelled 100 Calcium Cancelled 9.9 Total Bilirubin Cancelled 0.8 AST Cancelled 52 ALT Cancelled 52 H Alkalin
[2021-12-12 17:56] LABS: Chloride Rand Ur <20 mmol/L (32-290); Creatinine Random Urine 97 mg/dL (20-320)
== END 2021-12-06 10:33 | disposition home or self-care (01) | DRG 682 ==
LOC: ANHED 18:41 → ANHIMU 22:52
PROVIDERS: Chiropractor; Internal Medicine Nephrology; Physician Assistant; Admitting Provider Internal Medicine; Emergency Provider Emergency Medicine; PCP Nurse Practitioner Family; Visit Provider Internal Medicine
DX: N17.9 Acute kidney failure, unspecified (principal); K85.20 Alcohol induced acute pancreatitis without necrosis or infection; E87.2 Acidosis; E87.1 Hypo-osmolality and hyponatremia; E87.5 Hyperkalemia; I10 Essential (primary) hypertension; G40.909 Epilepsy, unspecified, not intractable, without status epilepticus; F10.20 Alcohol dependence, uncomplicated; Z20.822 Contact with and (suspected) exposure to COVID-19
CPT/HCPCS: 36415; 36600; 74176; 76775; 80048; 80053; 80069; 80307; 81001; 81002; 81050; 82375; 82436; 82550; 82570; 82805; 83050; 83605; 83690; 83735; 84156; 84300; 85025; 85027; 85610; 85730; 85999; 87502; 93005; 96361; 96365; 96366; 96375; 99285; A9270; C9113; C9803; G0378; J0131; J0610; J1815; J2405; J3411; J7030; J7070; U0003; U0005

== ENCOUNTER 2024-10-05 13:29 | Inpatient (IN) | payer OTHER, SELFPAY ==
[2024-10-05] VITALS (16 sets, daily range): BP systolic 91–154; BP diastolic 42–138; PULSE 63–100; RESP 13–21; TEMP 36.6; O2SAT 98–100; BMI 29.1
--- NOTE | ~2024-10-05 | US_ITS ---
EXAMINATION: US renal BI DATE: 10/06/2024 14:59 INDICATION: Acute renal failure TECHNIQUE: Multiple ultrasound grayscale images of the kidneys were obtained. COMPARISON: None. FINDINGS: The right kidney measures 11.1 x 5.2 x 5.1 cm. The left kidney measures 12.7 x 5.4 x 4.6 cm. The kidn eys demonstrate normal echogenicity. There is no hydronephrosis in either kidney. No stones identifi ed. The bladder is normal. Prostatomegaly measuring 5.0 x 3.2 x 2.8 cm. Prominent increased hepatic e chogenicity consistent with diffuse hepatic steatosis. IMPRESSION: 1. Normal kidneys without hydronephrosis. 2. Prostatomegaly. 3. Diffuse hepatic steatosis. Reviewed, dictated and finalized at location A.
--- OUTSIDE RECORDS SUMMARY | 2024-10-05 13:33 | XMS_ITS | Clinical Summary ---
Author Organization [facility] Address [address] [place] [address] Care Team Providers Care Distribution Tech Name Role Phone Unavailable Primary Care Provider Unavailabl e Allergies No known active allergies Medications lisinopriL (PRINIVIL,ZESTR IL) 10 mg tablet 1 Active fluticasone propionate (FLONASE) 50 mcg/actuation nasal spray SHAKE LIQUID AND USE 1 SPRAY IN EACH NOSTRIL DAILY 1 Active Vitamin B-1, mononitrate, 100 mg tablet Take 1 tablet (100 mg total) by mouth daily 2 Active clobetasoL (TEMOVATE) 0.05 % cream clobetasol 0.05 % topical cream Active levETIRAcetam (KEPPRA) 750 mg tabletIndicatio ns:Generalized- onset seizures (HCC) Take 1 tablet (750 mg total) by mouth 2 (two) times a day 180 tablet 3 5 04/28/19 26 Active Active Problems Problem Noted Date Diagnosed Date Orthopedic aftercare 02/21/2023 Sprain of ankle 02/21/2023 Generalized-onset seizures 03/31/2020 Assessment & Plan (10/06/2020 3:51 PM CDT): Patient has remained on levetiracetam 750 mg b.i.d. with good tolerability and no interim seizure. EEG is now normal. He has filled a 6 month seizure-free interval and has resume driving under [place] guidelines. I have renewed his levetiracetam. He will follow-up in neurology clinic in a year. Assessment & Plan (04/19/2020 2:36 PM BRASS INSTRUMENT REPAIR TECHNICIAN): Patient presents for follow-up of an acute new onset single generalized seizure. He has had no additional seizures since initially being seen. During the interval he has undergone an MRI of the brain with and without contrast which is normal by reviewed report. Sleep-deprived EEG with hyperventilation photic stimulation upon reviewed report demonstrates bifrontal epileptiform discharges suggesting increased propensity to future seizures. As result of his diagnostic testing I do believe he is at high risk of having additional seizures which are potentially life-threatening. I do believe he would benefit from initiation of antiseizure medication. After discussion about various treatment options, decision to start him on levetiracetam 750 mg b.i.d. has been made. Benefits, side effects, and potential adverse effects of medication were discussed with patient. Need for regular medical compliance was also reviewed. Patient has been counseled that he needs to fill a 6 month seizure-free interval before resuming driving under [place] guidelines. He cites understanding and agrees to abide by this. I would like him to have a follow-up EEG with hyperventilation photic stimulation in 3 months time. I hope with levetiracetam initiation to see the previously found epileptiform changes to subside on subsequent EEG testing. I will see him back in the office in 3 months time upon completion of his follow-up EEG. Assessment & Plan (03/31/2020 8:40 AM BRASS INSTRUMENT REPAIR TECHNICIAN): Patient experienced a first-time possible generalized seizure recently. Witnesses described tremulousness following a syncopal event. There was no tongue biting nor bladder or bowel control issues. Screening evaluation in the emergency room in [facility] was normal. His neurological examination is currently normal. I will await his MRI brain with and without contrast scheduled next week for [facility]. I have asked patient to make sure that I would refer record reports are forwarded to me following its completion. In addition I will check a sleep-deprived EEG with hyperventilation photic stimulation to screen for indications of increased propensity for future seizure. With the spectre of this possibly being a first-time seizure versus convulsive syncope, I reviewed with him [place] driving restrictions and that he should fulfill a 6 month asymptomatic interval before resuming driving. I will see him back upon completion of testing. Hypertensive disorder 07/11/2018 Surgical History Surgery Date Site/Laterality Comments ACHILLES TENDON REPAIR Medical History Medical History Date Comments Hypertension Seizures (HCC) Family History Medical History Relation Name Comments No Known Problems Brother No Known Problems Father No Known Problems Mother No Known Problems Sister 1 No Known Problems Sister 2 Relation Name Status Comments Brother Alive Father Alive Mother Alive Sister 1 Alive Sister 2 Alive Social History Tobacco Use Types Packs/Day Years Used Date Smoking Tobacco: Never Smokeless Tobacco: Current Chew Sex and Gender Information Value Date Recorded Sex Assigned at Not on file Legal Sex Male 11:30 PM BRASS INSTRUMENT REPAIR TECHNICIAN Gender Identity Not on file Sexual Orientation Not on file Obstetrics History Last Filed Vital Signs Vital Sign Reading Time Taken Comments Blood Pressure 140/80 04/28/2024 11:17 AM BRASS INSTRUMENT REPAIR TECHNICIAN Pulse 98 04/28/2024 11:17 AM BRASS INSTRUMENT REPAIR TECHNICIAN Temperature 37 C (98.6 F) 12/12/2021 3:01 PM CDT Respiratory Rate 20 04/28/2024 11:17 AM BRASS INSTRUMENT REPAIR TECHNICIAN Oxygen Saturation 100% 04/28/2024 11:17 AM BRASS INSTRUMENT REPAIR TECHNICIAN Inhaled Oxygen Concentration - - Weight 102.5 kg (226 lb) 04/28/2024 11:17 AM BRASS INSTRUMENT REPAIR TECHNICIAN Height 180.3 cm (5' 11) 04/28/2024 11:17 AM BRASS INSTRUMENT REPAIR TECHNICIAN Body Mass Index 31.52 04/28/2024 11:17 AM BRASS INSTRUMENT REPAIR TECHNICIAN Plan of Treatment Health Maintenance Due Date Last Done Comments Depression Screening 1992 Hepatitis C Screening 1992 Varicella Vaccines (1 of 2 - 13+ 2-dose series) 2005 Regular Well Visit/Exam 18-64 2010 HPV Vaccines (1 - 3-dose SCDM series) 09/12/2019 Influenza Vaccine (#1) 2024 01/15/2019 DTaP/Tdap/Td Vaccine (8 - Td or Tdap) 01/15/2029 01/15/2019, 10/17/2006, 10/13/1997, Additional history exists Hepatitis B Screening Completed 09/19/1993 , 1992, 1992 Pneumococcal vaccine <65 Aged Out No longer eligible based on patient's age to complete this topic Insurance PPO Member Subscriber Plan / Payer (Ef fective 2023-Present) Name:Rudi Eagle Relation to Subscriber:Self Name:Rudi Eagle Payer ID:[id number] (NAIC) Type:[facility] H[facility]/PPO Address: [place] [id number] [id number] Member Subscriber Plan / Payer (Ef fective 2018-Present) Name:Rudi Eagle Relation to Subscriber:Self Name:Rudi Eagle Payer ID:[id number] (NAIC) Type:[facility] HMO/PPO Address: [place] [phone]
--- OUTSIDE RECORDS SUMMARY | 2024-10-05 13:33 | XMS_ITS | Referral Summary ---
Author Organization [facility] Address [address] [place] [address] Care Team Providers Care Equipment Operation Instructor Name Role Phone Unavailable Primary Care Provider [...] year. Assessment & Plan (04/19/2020 2:36 PM FUELS ENGINEER): Patient presents for follow-up of an acute [...] EEG. Assessment & Plan (03/31/2020 8:40 AM FUELS ENGINEER): Patient experienced a first-time possible generalized seizure recently. Witnesses described tremulousness following a syncopal event. There was no tongue biting nor bladder or bowel control issues. Screening evaluation in the emergency room in [facility] was normal. His neurological examination is currently normal. I will await his MRI brain with and without contrast scheduled next week for [facility]. I have asked patient to [...] upon completion of testing. Hypertensive disorder 07/11/2018 Social History Tobacco Use Types Packs/Day Years Used Date Smoking Tobacco: Never Smokeless Tobacco: Current Chew Sex and Gender Information Value Date Recorded Sex Assigned at Not on file Legal Sex Male 11:30 PM FUELS ENGINEER Gender Identity Not on file Sexual Orientation Not on file Last Filed Vital Signs Vital Sign Reading Time Taken Comments Blood Pressure 140/80 04/28/2024 11:17 AM FUELS ENGINEER Pulse 98 04/28/2024 11:17 AM FUELS ENGINEER Temperature 37 C (98.6 F) 12/12/2021 3:01 PM CDT Respiratory Rate 20 04/28/2024 11:17 AM FUELS ENGINEER Oxygen Saturation 100% 04/28/2024 11:17 AM FUELS ENGINEER Inhaled Oxygen Concentration - - Weight 102.5 kg (226 lb) 04/28/2024 11:17 AM FUELS ENGINEER Height 180.3 cm (5' 11) 04/28/2024 11:17 AM FUELS ENGINEER Body Mass Index 31.52 04/28/2024 11:17 AM FUELS ENGINEER Plan of Treatment Not on file [place] [address] [place] [address] [facility] OPT[employer] PPO [facility]
--- OUTSIDE RECORDS SUMMARY | 2024-10-05 13:33 | XMS_ITS | Data Portability ---
Author Organization [place] - [facility], Main Office Address [address] [place] [address] Assessment No assessment recorded. Plan of Treatment Reminders Order Date Submit Date Provider Last Modified By Organization Details Last Modified Time Details Appointments None recorded. Lab lipid panel, serum 2024 025 vani 6 [facility], [address], [place], [address], 5 12:54:01 CMP, serum or plasma 2024 025 Extricom 6 [facility], [address], [place], [address], 5 12:54:11 TSH + free T4, serum 2024 025 Extricom4 6 [facility], [address], [place], [address], 5 12:54:19 lipid panel, serum 2024 025 Extricom4 6 [facility], [address], [place], [address], 5 12:54:29 vitamin D, 25-hydroxy, total, serum 2024 025 Extricom4 6 [facility], [address], [place], [address], 5 12:55:28 vitamin B12 + folate, serum or blood 2024 025 [email or web address] 6 [facility], [address], [place], [address], 5 12:55:39 Referral None recorded. Procedures None recorded. Surgeries None recorded. Imaging None recorded. Medication Orders lisinopril 10 mg tablet 2024 025 [id number], [address] [place], [place], [id number], 5 16:58:52 Patient TargetsNo targets recorded. Patient InstructionsNo instructions recorded. Reason for Referral None Reported. Results Created Date Observation Date Name Description Value Unit Range Abnormal Flag Note LastModifiedBy Organization Detail LastModifiedTime 12/05/19 22 12/04/2021 US, renal No observ ation record ed. [id number], [place], [address], 05/09/2022 19:50:50 Result Notes None recorded. Problems Name Problem SNOMED Code Status Onset Date Resolution Date Notes Provider Name and Address Organization Details Recorded Time Sprain of ankle 15544054 Active Not Available [facility] 3 19:50:03 Hypertensive disorder 44105822 Active 2018 Not Available [facility] 3 19:50:03 Eruption 537619130 Active 2021 Not Available [facility] 3 19:50:03 Essential hypertension 36170884 Active 2022 [place] [address], [address] [address], [place], [address] , [employer] 3 21:48:21 Steatotic liver disease 219713541 Active 2022 [place] [address], [place], [address] , [facility] 3 21:48:29 Seizure disorder 789706947 Active 2022 [place] [address] [address], [address] [address], [place], [address] , [facility] [place] [employer] [facility] 3 21:48:40 Psoriasis 5882333 Active 2022 SANTINO [place] [address], [address], [place], [address] , [facility] [place] [employer] [facility] 3 21:48:46 Vitamin D deficiency 87821861 Active 2024 Luz bowen MD [address], [facility] [address], [place], [address] , [facility] [employer] [facility] 5 16:40:01 Serum vitamin B12 below reference range 613785664 Active 2024 Luz bowen MD [address], [address], [place], [address] , [facility] [place] [employer] [facility] 5 16:40:10 Tremor 25116327 Active 2024 Luz bowen MD [address], [address] [address], [place], [address] , [facility] [employer] [facility] 5 16:58:52 Problem Notes None recorded. Procedures Surgical History Date Name Laterality Status Provider Name and Address Organization Details Recorded Time repair of tendo achilles completed Not Available [facility] 05/09/2022 19:49:25 tonsilectomy/roman oids completed Not Available [facility] 05/09/2022 19:49:25 Appendectomy completed Not Available [facility] 05/09/2022 19:49:25 Imaging Results None recorded. Procedure Notes None recorded. Medical Equipment None Reported. Allergies No known drug allergies Medications Name Sig Start Date Stop Date Status Note LastModified by Organization Details LastModified Time prednisone 10 mg tablet 07/04 completed Not Available Not Available Not Available hydrocodone 5 mg-acetamin ophen 325 mg tablet TK 1-2 T PO Q 6 H PRN 07/11 completed Not Available Not Available Not Available clobetasol 0.05 % topical cream APPLY A THIN LAYER TO THE AFFECTED AREA(S) BY TOPICAL ROUTE 2 TIMES PER DAY 04/22 completed Not Available Not Available Not Available tramadol 50 mg tablet TK 1 T PO Q 8 H PRN P 07/11 completed Not Available Not Available Not Available lisinopril 10 mg tablet TAKE 1 TABLET BY MOUTH EVERY DAY active Not Available Not Available No t Available levetiracet am 750 mg tablet active Not Available Not Available Not Available methylpredn isolone 4 mg tablets in a dose pack FOLLOW PACKAGE DIRECTION S 04/27 completed Not Available Not Available Not Available fluticasone propionate 50 mcg/actuati on nasal spray,suspe nsion SHAKE LIQUID AND USE 1 SPRAY IN EACH NOSTRIL DAILY 07/04 completed Not Available Not Available Not Available Boostrix Tdap 2.5 Lf unit-8 mcg-5 Lf/0.5 mL intramuscul ar syringe ADM 0.5ML IM UTD 02/23 completed Not Available Not Available Not Available Vitamin B-1 (mononitrat e) 100 mg tablet TAKE 1 TABLET BY MOUTH EVERY DAY 04/27 completed Not Available Not Available Not Available Flucelvax Quad (PF) 60 mcg (15 mcg x 4)/0.5 mL IM syringe ADM 0.5ML IM UTD 02/23 completed Not Available Not Available Not Available Vitals Date Recorded Body weight Body mass index (BMI) Body height Body temperature Heart rate Systolic And Diastolic Provider Name and Address Organization Details Last Updated DateTime 5 872651. 88 g 31.5 kg/m2 180.34 cm 97.4 [degF] 96 /min 186/102 mm[Hg] MEENAKSHI Santoro - [facility] [employer] [facility] 5 16:29:38 Date Recorded Body mass index (BMI) Body height Oxygen saturation Oxygen saturation in Arterial blood by Pulse oximetry Heart rate Body temperature Body weight Systolic And Diastolic Provider Name and Address Organization Details Last Updated DateTime 3 32.1 kg/m2 180.34 cm 100 % 100 % 96 /min 97.4 [degF] 444239. 25 g 168/110 mm[Hg] Not Available [facility] 3 19:49:28 Date Recorded Body mass index (BMI) Body height Oxygen saturation Oxygen saturation in Arterial blood by Pulse oximetry Heart rate Body temperature Body weight Systolic And Diastolic Provider Name and Address Organization Details Last Updated DateTime 2 28.9 kg/m2 180.34 cm 99 % 99 % 84 /min 97.8 [degF] 35908.6 2 g 122/84 mm[Hg] Not Available [facility] 3 19:49:28 Date Recorded Body mass index (BMI) Body height Oxygen saturation Oxygen saturation in Arterial blood by Pulse oximetry Heart rate Body temperature Body weight Systolic And Diastolic Provider Name and Address Organization Details Last Updated DateTime 1 28.2 kg/m2 180.34 cm 98 % 98 % 76 /min 97.5 [degF] 57879.6 6 g 130/80 mm[Hg] Not Available [facility] 3 19:49:28 Social History Question Answer Notes LastModified by Organizat ion Details LastModified Time Tobacco Smoking Status Never Smoker Not Available [facility] 05/09/2022 19:49:13 Do You Have An Advance Directive? No [id number] Information not available 05/09/2022 What Is Your Level Of Caffeine Consumption? Occasional [id number].[id number] Information not available 05/09/2022 In The 14 Days Before Symptom Onset, Have You Had Close Contact With A Laboratory-confir med COVID-19 While That Case Was Ill? No MIGRATION.[id number] Information not available 05/09/2022 In The 14 Days Before Symptom Onset, Have You Had Close Contact With A Person Who Is Under Investigation For COVID-19 While That Person Was Ill? No MIGRATION.[id number] 1088 Information not available 05/09/2022 What Type Of Diet Are You Following? REGULAR MIGRATION.301231 8092 Information not available 05/09/2022 What Is The Highest Grade Or Level Of School You Have Completed Or The Highest Degree You Have Received? [id number] MIGRATION.915961 1447 Information not available 05/09/2022 Have There Been Any Changes To Your Family Or Social Situation? No MIGRATION.155261 6418 Information not available 05/09/2022 What Is The Fluoride Status Of Your Home? Unknown MIGRATION.839533 1356 Information not available 05/09/2022 Are There Any Guns Present In Your Home? Yes MIGRATION.225503 2214 Information not available 05/09/2022 Do You Use Insect Repellent Routinely? No MIGRATION.835703 3001 Information not available 05/09/2022 [facility] MIGRATION.[id number] 9373 Information not available 05/09/2022 Do You Have A Medical Power Of Control Systems Technician? No MIGRATION.690786 8631 Information not available 05/09/2022 What Was The Date Of Your Most Recent Tobacco Screening? 04/22/2024 Information not available 04/22/2024 Do You Have Any Pets? Yes MIGRATION.164062 8615 Information not available 05/09/2022 What Is Your Relationship Status? Information not available 04/22/2024 Do You Use Your Seat Belt Or Car Seat Routinely? No MIGRATION.298300 2586 Information not available 05/09/2022 Do You Have Smoke And Carbon Monoxide Detectors In Your Home? Yes MIGRATION.717496 1879 Information not available 05/09/2022 Are You Passively Exposed To Smoke? No MIGRATION.617221 2947 Information not available 05/09/2022 Are There Any Smokers In Your House? No MIGRATION.642937 4518 Information not available 05/09/2022 Do You Use Sunscreen Routinely? No MIGRATION.039163 5730 Information not available 05/09/2022 Have You Recently Traveled Abroad? No MIGRATION.537735 4531 Information not available 05/09/2022 Do You Have Any Dietary Restrictions? No MIGRATION.968136 8950 Information not available 05/09/2022 Sex: Unknown Functional Status Question Answer Note LastModified by Organizat ion Details LastModified Time Do you use any illicit or recreational drugs? No MIGRATION.483632 4396 Information not available 05/09/2022 Do you or have you ever used any other forms of tobacco or nicotine? Yes MIGRATION.040278 2437 Information not available 05/09/2022 What is your level of alcohol consumption? Moderate MIGRATION.347562 0537 Information not available 05/09/2022 Do you or have you ever used smokeless tobacco? Currently chews tobacco MIGRATION.457418 6094 Information not available 05/09/2022 Do you or have you ever used e-cigarettes or vape? Never used [facility] Information not available 04/22/2024 What is your exercise level? Moderate MIGRATION.670268 2231 Information not available 05/09/2022 Mental Status Question Answer Note LastModified by Organizat ion Details LastModified Time Do you feel stressed (tense, restless, nervous, or anxious, or unable to sleep at night)? [id number] [id number] 6 Information not available 05/09/2022 Family History Relationship Description Onset Age of this Age Resolved Age Notes LastModified by Organization Details LastModified Time Father No current problems or disability [id number] Not available 05/09/2022 19:49:26 Mother No current problems or disability [id number].[id number] Not available 05/09/2022 19:49:26 Medical History Condition Response SEIZURES/EPILEPSY Y Past Encounters Encounter ID Performer Location Encounter Start Date Encounter Closed Date Diagnosis/Indication Diagnosis SNOMED-CT Code Diagnosis ICD10 Code Diagnosis Note [id number] Luz bowen MD [facility] Internal Med [address] [address] 11/07/2020 00:00:00 11/07/2020 11:40:50 [id number] Luz bowen MD [facility] Internal Med [facility] [address] [facility] [address] [place] [address] 07/04/2021 00:00:00 07/04/2021 13:32:02 [id number] Luz bowen MD [facility] Internal Med [facility] [address] [facility] [address] [place] [address] 04/27/2022 00:00:00 04/27/2022 13:05:35 [id number] Luz bowen MD [facility] Primary Care [facility] [address] [facility] [address] [place] [address] 04/22/2024 16:18:34 04/22/2024 16:56:36 Screening - NAD 679438218 Z13.9 Get yearly flu shotGet Tdap if not doneCan do COVID 19 boosters RTC in 3 months, do labs, ER if worse, he did verbalize his understand ing of the above Essential hypertension 27995201 I10 BP 180/102 repeat BP On lisinopril 10mg daily, renewed 04/22/2024 ,Has not been taking his BP med since 2 months, denies any chest pain or SOB, no palpitatio ns, no headaches, no presyncope or syncope, has noted mild tremors in the hands, declined any ER referrals at this time, advised to go to the ER if any symptoms worsenGet labsKeep BP logs and RTC in 2 weeks Seizure disorder 5564332 02 G40.909 Shi Rivera [employer] neurology 02/21/2023 On levetirace perez 750mg bid Hyperlipid emia screening 054336576 Z13.220 Vitamin D deficiency 347 67783 E55.9 Serum philip min B12 below reference range 558686664 R79.89 Tremor 23313533 R25.1 He still consumes alcohol, advised to wean off and stop, advised that d/t his BP and alcohol, he might be having tremorsHe will discuss this with his neurologis t, has an apt on 04/28/2024 Admits alcohol use 23309 7006 Z72.89 Advised to wean off and stop!Decli jeff any referrals at this time Health Concerns Section Related Observation LastModified by Organization Detai ls LastModified Time None Recorded Concern Status LastModified by Organization Details LastModified Time None Recorded Advance Directives Directive N: Payers Insurance Date Sequence Insurance Name Policy Number Policy Macias Covered Member ID Macias Member ID Guarantor Name 06/18/2024 1 [facility] [id number] Rudi Eagle [id number] Rudi Eagle
--- NOTE | 2024-10-05 15:45 | ED.GENADULT ---
HPI - General Adult General Chief complaint: Unspecified <Rosamaria Lares JEWELRY TECHNICIAN - Last Filed: 10/05/24 15:46> Stated complaint: I'm really dehydrated. <Rosamaria Lares APRN - Last Filed: 10/05/24 15:46> Time Seen by Provider: 10/05/24 15:30 <Rosamaria Lares JEWELRY TECHNICIAN - Last Filed: 10/05/24 15:46> Focused HPI: Patient is a 34-year-old male presents to dehydration and dizziness. He reports his symptoms started last Saturday. Patient reports he came to the ER for evaluation and was discharged home. He reports he has drink lots of water and Gatorade since then. Patient denies any pain, urinary symptoms, or recent fevers. He does endorse intermittent muscle cramps. Patient endorses a history of appendicitis, cholecystectomy, and Achilles rupture. GENERAL: Ill-appearing, well-nourished, and in no acute distress. HEAD: Normocephalic, atraumatic. CHEST: Clear to auscultation. ?No respiratory distress. HEART: Regular rate and rhythm.? NEURO: ?Alert and oriented x3. Patient screened in triage and initial orders placed.? ?Additional care and disposition to be based upon?diagnostic testing and treatment. <Rosamaria Lares JEWELRY TECHNICIAN - Last Filed: 10/05/24 15:46> Focused HPI: Patient is a 34-year-old male presents to dehydration and dizziness. He reports his symptoms started last Saturday. Patient reports he came to the ER for evaluation and was discharged home. He reports he has drink lots of water and Gatorade since then. Patient denies any pain, urinary symptoms, or recent fevers. He does endorse intermittent muscle cramps. Patient endorses a history of appendicitis, cholecystectomy, and Achilles rupture. Reports he recently restarted his Lisinopril a couple of months ago. GENERAL: Ill-appearing, well-nourished, and in no acute distress. HEAD: Normocephalic, atraumatic. CHEST: Clear to auscultation. ?No respiratory distress. HEART: Regular rate and rhythm.? NEURO: ?Alert and oriented x3. Patient screened in triage and initial orders placed.? ?Additional care and disposition to be based upon?diagnostic testing and treatment. <Elke Ramos PA-C - Last Filed: 10/05/24 22:31> Related Data Home medications: Home Medications ?Medication ?Instructions ?Recorded ?Confirmed ?Last Taken ?Type levetiracetam 750 mg tablet 750 mg PO BID 12/03/21 10/05/24 12/03/21 12:00 History lisinopril 10 mg tablet 10 mg PO DAILY 12/03/21 10/05/24 12/03/21 08:00 History <Rosamaria Lares APRN - Last Filed: 10/05/24 15:46> Allergies/adverse reactions: Allergies Allergy/AdvReac Type Severity Reaction Status Date / Time No Known Allergies Allergy Verified 10/05/24 13:46 <Rosamaria Lares APRN - Last Filed: 10/05/24 15:46> Review of Systems Review of Systems: All systems reviewed & are unremarkable except as noted in HPI and below <Elke Ramos PA-C - Last Filed: 10/05/24 22:31> [facility] Past Medical History Medical History: Medical History (Updated 10/05/24 @ 22:31 by Elke Ramos PA-C) History of hypertension History of seizure disorder <Rosamaria Lares APRN - Last Filed: 10/05/24 15:46> Surgical History Surgical History: Surgical History (Updated 12/03/21 @ 19:11 by Elke Ramos PA-C) History of appendectomy <Rosamaria Lares APRN - Last Filed: 10/05/24 15:46> Family History Family History: Family History Other No pertinent family history <Rosamaria Lares APRN - Last Filed: 10/05/24 15:46> Social History Social History: Social History (Updated 12/03/21 @ 19:11 by Elke Ramos PA-C) Smoking status: Former smoker Alcohol intake: current Drinks per week: 21 Substance use: never Lack of Transportation: No Lack of Food: Never True Current Housing: I Have Housing Concerned About Future Housing: No Difficulty Paying Gas/Electric Bills: No Difficulty Paying for Meds: No Currently Unemployed: No Education: High School Diploma/GED Difficulty w/ Childcare or Family Care: No Spiritual care concerns: No <Rosamaria Kalyan Lares APRN - Last Filed: 10/05/24 15:46> Exam Narrative: GENERAL: Well-appearing, well-nourished, and in no acute distress. HEAD: Normocephalic, atraumatic. EYES: EOMI. ENT: Nares clear, no rhinorrhea or epistaxis. Mucous membranes moist. Oropharynx without tonsillar hypertrophy exudate or other lesions. CHEST: Clear to auscultation. No respiratory distress. No wheezes rales or rhonchi HEART: Regular rate and rhythm. No murmur heard. Normal peripheral pulses. ABDOMEN: Soft, nontender, nondistended, normal active bowel sounds. EXTREMITIES: Normal range of motion. No edema. SKIN: Warm, dry, no rash. NEURO: No focal deficits. Alert and oriented x3. PSYCH: Normal mood and affect <Elke Ramos PA-C - Last Filed: 10/05/24 22:31> Course Course Emergency Course: Patient updated on his workup and need for admission <Elke Ramos PA-C - Last Filed: 10/05/24 22:31> LOCAL [place] [employer]IVER/PA Physician Supervision I agree with midlevel documentation; I performed the medical decision making component of this evaluation. <Lois Partida MD - Last Filed: 10/05/24 23:51> Consultations Consultation #1: Spoke with Dr. Ye who will consult. Will continue to volume replete and then maintenance fluids with NS <Elke Ramos PA-C - Last Filed: 10/05/24 22:31> Date: 10/05/24 <Elke Ramos PA-C - Last Filed: 10/05/24 22:31> Consultation #2: spoke with hospitalist about patient and workup who accepts admission <Elke Ramos PA-C - Last Filed: 10/05/24 22:31> Date: 10/05/24 <Elke Ramos PA-C - Last Filed: 10/05/24 22:31> Vital Signs Vital signs: Vital Signs Temperature 97.9 F 07/28/25 13:42 Pulse Rate 100 10/05/24 13:42 Respiratory Rate 18 10/05/24 13:42 Blood Pressure 108/61 10/05/24 13:42 Pulse Oximetry 99 10/05/24 13:42 Oxygen Delivery Room Air 10/05/24 13:42 Temperature 97.9 F 10/05/24 13:42 Pulse Rate 80 10/05/24 22:01 Respiratory Rate 18 10/05/24 22:01 Blood Pressure 101/49 L 10/05/24 22:01 Pulse Oximetry 99 10/05/24 22:01 Oxygen Delivery Room Air 10/05/24 23:04 <Rosamaria Lares, JEWELRY TECHNICIAN - Last Filed: 10/05/24 15:46> Vital Signs Temperature 97.9 F 10/05/24 13:42 Pulse Rate 100 10/05/24 13:42 Respiratory Rate 18 10/05/24 13:42 Blood Pressure 108/61 10/05/24 13:42 Pulse Oximetry 99 10/05/24 13:42 Oxygen Delivery Room Air 10/05/24 13:42 Temperature 97.9 F 10/05/24 13:42 Pulse Rate 80 10/05/24 22:01 Respiratory Rate 18 10/05/24 22:01 Blood Pressure 101/49 L 10/05/24 22:01 Pulse Oximetry 99 10/05/24 22:01 Oxygen Delivery Room Air 10/05/24 23:04 <Elke Ramos PA-C - Last Filed: 10/05/24 22:31> Vital Signs Temperature 97.9 F 10/05/24 13:42 Pulse Rate 100 10/05/24 13:42 Respiratory Rate 18 10/05/24 13:42 Blood Pressure 108/61 10/05/24 13:42 Pulse Oximetry 99 10/05/24 13:42 Oxygen Delivery Room Air 10/05/24 13:42 Temperature 97.9 F 10/05/24 13:42 Pulse Rate 80 10/05/24 22:01 Respiratory Rate 18 10/05/24 22:01 Blood Pressure 101/49 L 10/05/24 22:01 Pulse Oximetry 99 10/05/24 22:01 Oxygen Delivery Room Air 10/05/24 23:04 <Lois Partida MD - Last Filed: 10/05/24 23:51> Medical Decision Making MDM Narrative Medical decision making narrative: patient presents to the emergency department for feelings of dehydration. Denies any vomiting or diarrhea. Does report he works outside. He does also report he recently restarted his lisinopril. Blood pressure is soft, but stable. CBC with leukocytosis to 11.1. Also shows normocytic anemia hemoglobin of 13.5. Metabolic panel with evidence of acute renal failure with creatinine of 19.29, BUN 90, bicarb of 14, gap of 29. Urine with 11-20 white blood cells, also many squamous epithelial cells. Patient is not having any urinary symptoms. Will send this for culture. Shows 1+ ketones, greater than 20 casts. Patient hydrated with 2 L normal saline, 1 L of LR in the ER. Spoke with Dr. Ye who will consult. After volume repletion will start maintenance fluids with NS. Spoke with hospitalist about patient and workup who accepts admission <Elke Ramos PA-C - Last Filed: 10/05/24 22:31> Differential Diagnosis Differential Diagnosis: acute renal failure, dehydration, electrolyte derangement <Elke Ramos PA-C - Last Filed: 10/05/24 22:31> Vital Signs Vital Signs: Vital Signs Temperature 97.9 F 10/05/24 13:42 Pulse Rate 100 10/05/24 13:42 Respiratory Rate 18 10/05/24 13:42 Blood Pressure 108/61 10/05/24 13:42 Pulse Oximetry 99 10/05/24 13:42 Oxygen Delivery Room Air 10/05/24 13:42 Temperature 97.9 F 10/05/24 13:42 Pulse Rate 80 10/05/24 22:01 Respiratory Rate 18 10/05/24 22:01 Blood Pressure 101/49 L 10/05/24 22:01 Pulse Oximetry 99 10/05/24 22:01 Oxygen Delivery Room Air 10/05/24 23:04 <Rosamaria Lares APRN - Last Filed: 10/05/24 15:46> Vital Signs Temperature 97.9 F 10/05/24 13:42 Pulse Rate 100 10/05/24 13:42 Respiratory Rate 18 10/05/24 13:42 Blood Pressure 108/61 10/05/24 13:42 Pulse Oximetry 99 10/05/24 13:42 Oxygen Delivery Room Air 10/05/24 13:42 Temperature 97.9 F 10/05/24 13:42 Pulse Rate 80 10/05/24 22:01 Respiratory Rate 18 10/05/24 22:01 Blood Pressure 101/49 L 10/05/24 22:01 Pulse Oximetry 99 10/05/24 22:01 Oxygen Delivery Room Air 10/05/24 23:04 <Elke Ramos PA-C - Last Filed: 10/05/24 22:31> Vital Signs Temperature 97.9 F 10/05/24 13:42 Pulse Rate 100 10/05/24 13:42 Respiratory Rate 18 10/05/24 13:42 Blood Pressure 108/61 10/05/24 13:42 Pulse Oximetry 99 10/05/24 13:42 Oxygen Delivery Room Air 10/05/24 13:42 Temperature 97.9 F 10/05/24 13:42 Pulse Rate 80 10/05/24 22:01 Respiratory Rate 18 10/05/24 22:01 Blood Pressure 101/49 L 10/05/24 22:01 Pulse Oximetry 99 10/05/24 22:01 Oxygen Delivery Room Air 10/05/24 23:04 <Lois Partida MD - Last Filed: 10/05/24 23:51> Lab Data Lab results reviewed: Yes I reviewed the patient's lab results. <Elke Ramos PA-C - Last Filed: 10/05/24 22:31> Result diagrams: 10/05/24 15:38 10/05/24 15:38 <Rosamaria Lares APRN - Last Filed: 10/05/24 15:46> Labs: Lab Results 10/05/24 10/05/24 Range/Units 15:38 19:51 WBC 11.1 H (4.5-10.0) K/mm3 RBC 4.09 L (4.6-6.20) M/mm3 Hgb 13.5 L (14.0-18.0) g/dL Hct 39.6 L (42.0-52.0) % MCV 96.8 (80-100) fl MCH 33.0 (26-34) pg MCHC 34.1 (32-36) g/dl RDW 11.9 (11.5-14.5) % Plt Count 349 D (150-375) k/mm3 MPV 10.5 H (7.4-10.4) fl Immature Gran % (Auto) 1.0 H (0-0.5) % Neut % (Auto) 76.2 H (45.5-73.1) % Lymph % (Auto) 11.4 L (18.3-44.2) % Charlton % (Auto) 9.9 H (2.6-8.5) % Eos % (Auto) 1.0 (0-4.4) % Baso % (Auto) 0.5 (0.2-1.2) % Lymph # (Auto) 1.26 (0.9-3.2) K/mm3 Charlton # (Auto) 1.1 H (0.1-0.6) K/mm3 Eos # (Auto) 0.1 (0-0.3) K/mm3 Baso # (Auto) 0.1 (0.0-0.1) K/mm3 Abs Immat Gran (auto) 0.11 H (0.00-0.031) K/mm3 Absolute Neuts (auto) 8.5 H (1.3-6.7) K/mm3 Absolute Nucleated RBC 0.000 (0.0-0.012) K/mm3 Nucleated RBC % 0.0 (0.0-0.2) % Sodium 134 L (137-145) mmol/L Potassium 4.8 (3.4-5.0) mmol/L Chloride 91 L (98-107) mmol/L Carbon Dioxide 14 L (22-30) mmol/L Anion Gap 29 H (4-12) mmol/L BUN 90 H D (9-20) mg/dL Creatinine 19.29 H (0.7-1.3) mg/dL Estim Creat Clear Calc 5 ml/min Estimated GFR 3 L (59 - ) Glucose 91 (65-110) mg/dL Calcium 10.0 (8.4-10.2) mg/dL Total Bilirubin 0.9 (0.2-1.3) mg/dL AST 29 (17-59) U/L ALT 44 (6-50) U/L Alkaline Phosphatase 91 (38-126) U/L Total Creatine Kinase 53 L (55-170) U/L Total Protein 8.5 H (6.3-8.2) g/dL Albumin 5.2 H (3.5-5.1) g/dL Lipase 315 H (23-300) U/L Urine Color Yellow (Yellow) Urine Appearance Cloudy H (Clear) Urine pH 5.0 (5.0-9.0) Ur Specific [place] 1.023 (1.001-1.035) Urine Protein 3+ H (Negative) mg/dL Urine Glucose (UA) Negative (Negative) mg/dL Urine Ketones 1+ H (Negative) mg/dL Ur Blood (Man) Negative (Negative) Urine Nitrate Negative (Negative) Urine Bilirubin Negative (Negative) Urine Urobilinogen 1.0 (<2.0) mg/dL Add Ur Microanalysis Reviewed Leukocyte Esterase Rfl Trace H (Negative) TISHA/UL Urine RBC 6-10 H (0-2) /hpf Urine WBC 11-20 H (0-3) /hpf Ur Squamous Epith Cells Many H (Few) /hpf Urine Bacteria None seen /hpf Urine Casts >20 Hyaline Casts 5-9 H (None) /lpf Urine Mucus Present /lpf Ur Random Sodium 24 meq/L Urine Creatinine > 693.0 mg/dL Urine Opiates Screen Negative (Negative) Urine Methadone Screen Negative (Negative) Ur Barbiturates Screen Negative (Negative) Ur Phencyclidine Scrn Negative (Negative) Ur Amphetamine Screen Negative (Negative) U Benzodiazepines Scrn Negative (Negative) Urine Cocaine Screen Negative (Negative) U Cannabinoids Screen Negative (Negative) Ethyl Alcohol < 10 (<10) mg/dL <Rosamaria Lares, JEWELRY TECHNICIAN - Last Filed: 10/05/24 15:46> Lab Results 10/05/24 10/05/24 Range/Units 15:38 19:51 WBC 11.1 H (4.5-10.0) K/mm3 RBC 4.09 L (4.6-6.20) M/mm3 Hgb 13.5 L (14.0-18.0) g/dL Hct 39.6 L (42.0-52.0) % MCV 96.8 (80-100) fl MCH 33.0 (26-34) pg MCHC 34.1 (32-36) g/dl RDW 11.9 (11.5-14.5) % Plt Count 349 D (150-375) k/mm3 MPV 10.5 H (7.4-10.4) fl Immature Gran % (Auto) 1.0 H (0-0.5) % Neut % (Auto) 76.2 H (45.5-73.1) % Lymph % (Auto) 11.4 L (18.3-44.2) % Charlton % (Auto) 9.9 H (2.6-8.5) % Eos % (Auto) 1.0 (0-4.4) % Baso % (Auto) 0.5 (0.2-1.2) % Lymph # (Auto) 1.26 (0.9-3.2) K/mm3 Charlton # (Auto) 1.1 H (0.1-0.6) K/mm3 Eos # (Auto) 0.1 (0-0.3) K/mm3 Baso # (Auto) 0.1 (0.0-0.1) K/mm3 Abs Immat Gran (auto) 0.11 H (0.00-0.031) K/mm3 Absolute Neuts (auto) 8.5 H (1.3-6.7) K/mm3 Absolute Nucleated RBC 0.000 (0.0-0.012) K/mm3 Nucleated RBC % 0.0 (0.0-0.2) % Sodium 134 L (137-145) mmol/L Potassium 4.8 (3.4-5.0) mmol/L Chloride 91 L (98-107) mmol/L Carbon Dioxide 14 L (22-30) mmol/L Anion Gap 29 H (4-12) mmol/L BUN 90 H D (9-20) mg/dL Creatinine 19.29 H (0.7-1.3) mg/dL Estim Creat Clear Calc 5 ml/min Estimated GFR 3 L (59 - ) Glucose 91 (65-110) mg/dL Calcium 10.0 (8.4-10.2) mg/dL Total Bilirubin 0.9 (0.2-1.3) mg/dL AST 29 (17-59) U/L ALT 44 (6-50) U/L Alkaline Phosphatase 91 (38-126) U/L Total Creatine Kinase 53 L (55-170) U/L Total Protein 8.5 H (6.3-8.2) g/dL Albumin 5.2 H (3.5-5.1) g/dL Lipase 315 H (23-300) U/L Urine Color Yellow (Yellow) Urine Appearance Cloudy H (Clear) Urine pH 5.0 (5.0-9.0) Ur Specific [place] 1.023 (1.001-1.035) Urine Protein 3+ H (Negative) mg/dL Urine Glucose (UA) Negative (Negative) mg/dL Urine Ketones 1+ H (Negative) mg/dL Ur Blood (Man) Negative (Negative) Urine Nitrate Negative (Negative) Urine Bilirubin Negative (Negative) Urine Urobilinogen 1.0 (<2.0) mg/dL Add Ur Microanalysis Reviewed Leukocyte Esterase Rfl Trace H (Negative) TISHA/UL Urine RBC 6-10 H (0-2) /hpf Urine WBC 11-20 H (0-3) /hpf Ur Squamous Epith Cells Many H (Few) /hpf Urine Bacteria None seen /hpf Urine Casts >20 Hyaline Casts 5-9 H (None) /lpf Urine Mucus Present /lpf Ur Random Sodium 24 meq/L Urine Creatinine > 693.0 mg/dL Urine Opiates Screen Negative (Negative) Urine Methadone Screen Negative (Negative) Ur Barbiturates Screen Negative (Negative) Ur Phencyclidine Scrn Negative (Negative) Ur Amphetamine Screen Negative (Negative) U Benzodiazepines Scrn Negative (Negative) Urine Cocaine Screen Negative (Negative) U Cannabinoids Screen Negative (Negative) Ethyl Alcohol < 10 (<10) mg/dL <Elke Ramos PA-C - Last Filed: 10/05/24 22:31> Lab Results 10/05/24 10/05/24 Range/Units 15:38 19:51 WBC 11.1 H (4.5-10.0) K/mm3 RBC 4.09 L (4.6-6.20) M/mm3 Hgb 13.5 L (14.0-18.0) g/dL Hct 39.6 L (42.0-52.0) % MCV 96.8 (80-100) fl MCH 33.0 (26-34) pg MCHC 34.1 (32-36) g/dl RDW 11.9 (11.5-14.5) % Plt Count 349 D (150-375) k/mm3 MPV 10.5 H (7.4-10.4) fl Immature Gran % (Auto) 1.0 H (0-0.5) % Neut % (Auto) 76.2 H (45.5-73.1) % Lymph % (Auto) 11.4 L (18.3-44.2) % Charlton % (Auto) 9.9 H (2.6-8.5) % Eos % (Auto) 1.0 (0-4.4) % Baso % (Auto) 0.5 (0.2-1.2) % Lymph # (Auto) 1.26 (0.9-3.2) K/mm3 Charl[place] # (Auto) 1.1 H (0.1-0.6) K/mm3 Eos # (Auto) 0.1 (0-0.3) K/mm3 Baso # (Auto) 0.1 (0.0-0.1) K/mm3 Abs Immat Gran (auto) 0.11 H (0.00-0.031) K/mm3 Absolute Neuts (auto) 8.5 H (1.3-6.7) K/mm3 Absolute Nucleated RBC 0.000 (0.0-0.012) K/mm3 Nucleated RBC % 0.0 (0.0-0.2) % Sodium 134 L (137-145) mmol/L Potassium 4.8 (3.4-5.0) mmol/L Chloride 91 L (98-107) mmol/L Carbon Dioxide 14 L (22-30) mmol/L Anion Gap 29 H (4-12) mmol/L BUN 90 H D (9-20) mg/dL Creatinine 19.29 H (0.7-1.3) mg/dL Estim Creat Clear Calc 5 ml/min Estimated GFR 3 L (59 - ) Glucose 91 (65-110) mg/dL Calcium 10.0 (8.4-10.2) mg/dL Total Bilirubin 0.9 (0.2-1.3) mg/dL AST 29 (17-59) U/L ALT 44 (6-50) U/L Alkaline Phosphatase 91 (38-126) U/L Total Creatine Kinase 53 L (55-170) U/L Total Protein 8.5 H (6.3-8.2) g/dL Albumin 5.2 H (3.5-5.1) g/dL Lipase 315 H (23-300) U/L Urine Color Yellow (Yellow) Urine Appearance Cloudy H (Clear) Urine pH 5.0 (5.0-9.0) Ur Specific [place] 1.023 (1.001-1.035) Urine Protein 3+ H (Negative) mg/dL Urine Glucose (UA) Negative (Negative) mg/dL Urine Ketones 1+ H (Negative) mg/dL Ur Blood (Man) Negative (Negative) Urine Nitrate Negative (Negative) Urine Bilirubin Negative (Negative) Urine Urobilinogen 1.0 (<2.0) mg/dL Add Ur Microanalysis Reviewed Leukocyte Esterase Rfl Trace H (Negative) TISHA/UL Urine RBC 6-10 H (0-2) /hpf Urine WBC 11-20 H (0-3) /hpf Ur Squamous Epith Cells Many H (Few) /hpf Urine Bacteria None seen /hpf Urine Casts >20 Hyaline Casts 5-9 H (None) /lpf Urine Mucus Present /lpf Ur Random Sodium 24 meq/L Urine Creatinine > 693.0 mg/dL Urine Opiates Screen Negative (Negative) Urine Methadone Screen Negative (Negative) Ur Barbiturates Screen Negative (Negative) Ur Phencyclidine Scrn Negative (Negative) Ur Amphetamine Screen Negative (Negative) U Benzodiazepines Scrn Negative (Negative) Urine Cocaine Screen Negative (Negative) U Cannabinoids Screen Negative (Negative) Ethyl Alcohol < 10 (<10) mg/dL <Lois Partida MD - Last Filed: 10/05/24 23:51> Critical Care Time Critical Care Time Critical Care Time: Yes <Elke Ramos PA-C - Last Filed: 10/05/24 22:31> Total Critical Care Time: 35 <Elke Ramos PA-C - Last Filed: 10/05/24 22:31> Discharge Plan Discharge Clinical Impression: Acute renal failure Qualifiers: Acute renal failure type: unspecified Qualified Code(s): N17.9 - Acute kidney failure, unspecified <Rosamaria Lares APRN - Last Filed: 10/05/24 15:46> Patient Disposition: Still a Patient <Rosamaria Lares APRN - Last Filed: 10/05/24 15:46> Condition: Serious <Rosamaria Lares, JEWELRY TECHNICIAN - Last Filed: 10/05/24 15:46>
[2024-10-05 16:04] LABS: Hematocrit 39.6 % (42.0-52.0); Hemoglobin 13.5 g/dL (14.0-18.0); Immature Granulocyte Percent A 1.0 % (0-0.5); Lymphocytes Absolute Auto 1.26 K/mm3 (0.9-3.2); Mean Corpuscular HGB Conc 34.1 g/dl (32-36); Mean Corpuscular Hemoglobin 33.0 pg (26-34); Mean Corpuscular Volume 96.8 fl (80-100); Nucleated Red Blood Cells Absolute Auto 0.000 K/mm3 (0.0-0.012); Nucleated Red Blood Cells Perc 0.0 % (0.0-0.2); Platelet Count Result 349 k/mm3 (150-375); Red Blood Count 4.09 M/mm3 (4.6-6.20); White Blood Count 11.1 K/mm3 (4.5-10.0)
[2024-10-05 16:29] LABS: Alanine Aminotransferase 44 U/L (6-50); Albumin Level 5.2 g/dL (3.5-5.1); Alkaline Phosphatase 91 U/L (38-126); Anion Gap 29 mmol/L (4-12); Aspartate Amino Transferase 29 U/L (17-59); Bilirubin,Total 0.9 mg/dL (0.2-1.3); Blood Urea Nitrogen 90 mg/dL (9-20); Calcium 10.0 mg/dL (8.4-10.2); Carbon Dioxide 14 mmol/L (22-30); Chloride 91 mmol/L (98-107); Creatine Kinase 53 U/L (55-170); Glucose 91 mg/dL (65-110); Potassium 4.8 mmol/L (3.4-5.0); Sodium 134 mmol/L (137-145); Total Protein 8.5 g/dL (6.3-8.2)
[2024-10-05 16:42] LABS: Estimated CRCL calculation 5 ml/min; Estimated Glomerular Filt Rate 3
[2024-10-05] MEDS: SODIUM CHLORIDE 0.9% IV 1,000 ML 999 ML IV CONT ×2 (17:55→18:32)
[2024-10-05 18:12] LABS: Lipase 315 U/L (23-300)
--- OUTSIDE RECORDS SUMMARY | 2024-10-05 18:12 | XMS_ITS | Clinical Summary ---
Author Organization [facility] Address [address] [place] [address] Care Team Providers Care Office Cleaner Name Role Phone Unavailable Primary Care Provider [...] seizure-free interval and has resume driving under [place] guidelines. I have renewed his levetiracetam. He will follow-up in neurology clinic in a year. Assessment & Plan (04/19/2020 2:36 PM PRIME BROKER): Patient presents for follow-up of an acute [...] month seizure-free interval before resuming driving under [place] guidelines. He cites understanding and agrees to [...] EEG. Assessment & Plan (03/31/2020 8:40 AM PRIME BROKER): Patient experienced a first-time possible generalized seizure recently. Witnesses described tremulousness following a syncopal event. There was no tongue biting nor bladder or bowel control issues. Screening evaluation in the emergency room in [facility] was normal. His neurological examination is currently normal. I will await his MRI brain with and without contrast scheduled next week for [facility]. I have asked patient to make sure that I would refer record reports are forwarded to me following its completion. In addition I will check a sleep-deprived EEG with hyperventilation photic stimulation to screen for indications of increased propensity for future seizure. With the spectre of this possibly being a first-time seizure versus convulsive syncope, I reviewed with him [place] driving restrictions and that he should fulfill [...] on file Legal Sex Male 11:30 PM PRIME BROKER Gender Identity Not on file Sexual Orientation Not on file Obstetrics History Last Filed Vital Signs Vital Sign Reading Time Taken Comments Blood Pressure 140/80 04/28/2024 11:17 AM PRIME BROKER Pulse 98 04/28/2024 11:17 AM PRIME BROKER Temperature 37 C (98.6 F) 12/12/2021 3:01 PM CDT Respiratory Rate 20 04/28/2024 11:17 AM PRIME BROKER Oxygen Saturation 100% 04/28/2024 11:17 AM PRIME BROKER Inhaled Oxygen Concentration - - Weight 102.5 kg (226 lb) 04/28/2024 11:17 AM PRIME BROKER Height 180.3 cm (5' 11) 04/28/2024 11:17 AM PRIME BROKER Body Mass Index 31.52 04/28/2024 11:17 AM PRIME BROKER Plan of Treatment Health Maintenance Due Date [...] to Subscriber:Self Name:Rudi Eagle Payer ID:[id number] (NAIC) Type:[facility] H[facility]/PPO Address: [place] [id number] Member Subscriber Plan / Payer (Ef fective 2018-Present) Name:Rudi Eagle Relation to Subscriber:Self Name:Rudi Egale Payer ID:[id number] (NAIC) Type:[facility] HMO/PPO Address: [place] [phone]
--- OUTSIDE RECORDS SUMMARY | 2024-10-05 18:12 | XMS_ITS | Referral Summary ---
Author Organization [facility] Address [address] [place] [address] Care Team Providers Care Front Sight Attacher Name Role Phone Unavailable Primary Care Provider [...] seizure-free interval and has resume driving under [place] guidelines. I have renewed his levetiracetam. He will follow-up in neurology clinic in a year. Assessment & Plan (04/19/2020 2:36 PM TRACK COACH): Patient presents for follow-up of an acute [...] month seizure-free interval before resuming driving under [place] guidelines. He cites understanding and agrees to [...] EEG. Assessment & Plan (03/31/2020 8:40 AM TRACK COACH): Patient experienced a first-time possible generalized seizure recently. Witnesses described tremulousness following a syncopal event. There was no tongue biting nor bladder or bowel control issues. Screening evaluation in the emergency room in [facility] was normal. His neurological examination is currently normal. I will await his MRI brain with and without contrast scheduled next week for [facility]. I have asked patient to make sure that I would refer record reports are forwarded to me following its completion. In addition I will check a sleep-deprived EEG with hyperventilation photic stimulation to screen for indications of increased propensity for future seizure. With the spectre of this possibly being a first-time seizure versus convulsive syncope, I reviewed with him [place] driving restrictions and that he should fulfill a 6 month asymptomatic interval before resuming driving. I will see him back upon completion of testing. Hypertensive disorder 07/11/2018 Social History Tobacco Use Types Packs/Day Years Used Date Smoking Tobacco: Never Smokeless Tobacco: Current Chew Sex and Gender Information Value Date Recorded Sex Assigned at Not on file Legal Sex Male 11:30 PM TRACK COACH Gender Identity Not on file Sexual Orientation Not on file Last Filed Vital Signs Vital Sign Reading Time Taken Comments Blood Pressure 140/80 04/28/2024 11:17 AM TRACK COACH Pulse 98 04/28/2024 11:17 AM TRACK COACH Temperature 37 C (98.6 F) 12/12/2021 3:01 PM CDT Respiratory Rate 20 04/28/2024 11:17 AM TRACK COACH Oxygen Saturation 100% 04/28/2024 11:17 AM TRACK COACH Inhaled Oxygen Concentration - - Weight 102.5 kg (226 lb) 04/28/2024 11:17 AM TRACK COACH Height 180.3 cm (5' 11) 04/28/2024 11:17 AM TRACK COACH Body Mass Index 31.52 04/28/2024 11:17 AM TRACK COACH Plan of Treatment Not on file [place] [address] [place] [address] [facility] [employer] PPO [facility]
[2024-10-05 20:28] LABS: Add Urine Microscopic? YES; Appearance Urine Cloudy (Clear); Glucose Urine UA Negative (Negative); Leukocyte Esterase Ur Trace LEU/UL (Negative); Need Manual Microscopic Reviewed; Nitrate Urine Negative (Negative); Non Pathogenic Casts >20; Specific Grav Ur 1.023 (1.001-1.035)
[2024-10-05 20:31] LABS: Cannabinoid Screen Urine Negative (Negative)
[2024-10-05] MEDS: LACTATED RINGERS 1,000 ML 999 ML IV CONT (20:51)
--- NOTE | 2024-10-05 20:57 | PM.IMHP ---
H&P: HPI History of Present Illness Date/Time: 10/05/24 20:57 Chief Complaint: Dizziness, cramping Narrative: 34-year-old male with a history of seizure disorder, alcohol use disorder, hypertension, history of pancreatitis and renal failure presents on 10/05/2024 to [facility] with the complaint of dehydration dizziness and cramping in his shoulder and neck muscles for about a week. The patient reports he has had a good appetite and hydrate very well and even more when he works. 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 He has had no syncope. He denies shortness of breath, chest pain, change in vision, nausea or vomiting or diarrhea. No bladder pain, no urinary symptoms. He has still been making urine Of note, in 2021 the patient presented with nausea and vomiting thought to be due to pancreatitis and he was in acute renal failure. He recovered from the renal failure completely. On presentation is blood pressure is slightly low at 90 8/59. This did improve. WBC 11.1, hemoglobin 13.5, 134 sodium, chloride 91, bicarb 14, anion gap 29, BUN 90, serum creatinine 19.29, creatinine kinase 53, lipase 315. He provided a urine sample but it was contaminated. Urine culture pending. Drugs of abuse screen negative. Ethyl alcohol within normal limits. Review of Systems Review of Systems: All systems reviewed & are unremarkable except as noted in HPI and below (Subjective/HPI) [facility] [place] Past Medical History Medical History (Updated 10/05/24 @ 21:00 by Nona Koroma MD) History of hypertension History of seizure disorder Surgical History Surgical History (Updated 12/03/21 @ 19:11 by Elke Ramos PA-C) History of appendectomy Family History Family History (Updated 12/03/21 @ 23:25 by Luz See RN) Other No pertinent family history Social History Social History (Updated 12/03/21 @ 19:11 by Elke Ramos PA-C) Smoking status: Never smoker Alcohol intake: current Drinks per week: 20 Substance use: never Spiritual care concerns: No Meds Home Medications and Allergies Home Medications ?Medication ?Instructions ?Recorded ?Confirmed ?Type levetiracetam 750 mg tablet 750 mg PO BID 12/03/21 12/03/21 History lisinopril 10 mg tablet 10 mg PO DAILY 12/03/21 12/03/21 History thiamine HCl (vitamin B1) 100 mg 100 mg PO DAILY #20 tabs 12/06/21 Rx tablet Allergies Allergy/AdvReac Type Severity Reaction Status Date / Time No Known Allergies Allergy Verified 10/05/24 13:46 Vital Signs Vital Signs - 24 hr 10/05/24 13:42 10/05/24 17:43 10/05/24 17:49 Temperature 97.9 F Pulse Rate 100 77 73 Respiratory Rate 18 18 14 Blood Pressure 108/61 98/59 L Pulse Oximetry 99 98 100 Oxygen Delivery Room Air 10/05/24 17:59 10/05/24 18:00 10/05/24 18:15 Temperature Pulse Rate 70 67 80 Respiratory Rate 18 13 Blood Pressure Pulse Oximetry 100 100 Oxygen Delivery 10/05/24 18:30 10/05/24 18:35 10/05/24 18:45 Temperature Pulse Rate 71 76 63 Respiratory Rate 18 14 14 Blood Pressure 91/53 L Pulse Oximetry 100 98 100 Oxygen Delivery 10/05/24 18:46 10/05/24 19:31 10/05/24 19:50 Temperature Pulse Rate 65 78 82 Respiratory Rate 16 21 H 17 Blood Pressure 100/51 L 106/42 L 154/138 H Pulse Oximetry 100 100 100 Oxygen Delivery 10/05/24 20:01 10/05/24 20:16 Temperature Pulse Rate 65 72 Respiratory Rate 18 14 Blood Pressure 95/48 L 98/55 L Pulse Oximetry 100 100 Oxygen Delivery Exam Const: General: comfortable and no acute distress Other: A&O x3 Eyes: Pupils: Equal, round and reactive pupils present Neck: Neck: supple Resp: Effort & Inspection: normal respiratory effort Auscultation: clear to auscultation bilaterally Cardio: Rate: regular rate Rhythm: regular rhythm Heart sounds: no gallops, no murmurs and no rubs GI: Inspection: non-distended GI Palp: Yes Soft to palpation and No Tenderness to palpation present (GI) : General: Yes bladder normal to palpation Neuro: Motor exam (neuro): 5/5 motor strength present throughout Sensory Exam: normal sensation Extrem: General: no edema H&P: Results Labs Labs: Short CBC 10/05/24 Range/Units 15:38 WBC 11.1 H (4.5-10.0) K/mm3 Hgb 13.5 L (14.0-18.0) g/dL Hct 39.6 L (42.0-52.0) % Plt Count 349 D (150-375) k/mm3 BMP 10/05/24 15:38 Sodium 134 L Potassium 4.8 Chloride 91 L Carbon Dioxide 14 L BUN 90 H D Creatinine 19.29 H Glucose 91 Calcium 10.0 Cardiac Enzymes 10/05/24 Range/Units 15:38 Total Creatine Kinase 53 L (55-170) U/L Liver Function 10/05/24 Range/Units 15:38 Total Bilirubin 0.9 (0.2-1.3) mg/dL AST 29 (17-59) U/L ALT 44 (6-50) U/L Alkaline Phosphatase 91 (38-126) U/L Albumin 5.2 H (3.5-5.1) g/dL Urine 10/05/24 Range/Units 19:51 Urine Color Yellow (Yellow) Urine Appearance Cloudy H (Clear) Urine pH 5.0 (5.0-9.0) Ur Specific [place] 1.023 (1.001-1.035) Urine Protein 3+ H (Negative) mg/dL Urine Glucose (UA) Negative (Negative) mg/dL Assessment and Plan Assessment and plan (1) Alcohol dependence: Code(s): F10.20 - Alcohol dependence, uncomplicated Status: Acute (2) Acute kidney failure: Qualifiers: Acute renal failure type: unspecified Qualified Code(s): N17.9 - Acute kidney failure, unspecified Code(s): N17.9 - Acute kidney failure, unspecified Status: Acute (3) Hypertension: Code(s): I10 - Essential (primary) hypertension Status: Acute (4) Hypovolemia: Code(s): E86.1 - Hypovolemia Status: Acute (5) Seizure disorder: Code(s): G40.909 - Epilepsy, unspecified, not intractable, without status epilepticus Status: Acute Plan 34-year-old male with a history of seizure disorder, alcohol use disorder, hypertension, history of pancreatitis and renal failure presents on 10/05/2024 to [facility] with the complaint of dehydration dizziness and cramping in his shoulder and neck muscles for about a week. The patient reports he has had a good appetite and hydrate very well and even more when he works. 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 He has had no syncope. He denies shortness of breath, chest pain, change in vision, nausea or vomiting or diarrhea. No bladder pain, no urinary symptoms. He has still been making urine Of note, in 2021 the patient presented with nausea and vomiting thought to be due to pancreatitis and he was in acute renal failure. He recovered from the renal failure completely. On presentation is blood pressure is slightly low at 90 8/59. This did improve. WBC 11.1, hemoglobin 13.5, 134 sodium, chloride 91, bicarb 14, anion gap 29, BUN 90, serum creatinine 19.29, creatinine kinase 53, lipase 315. He provided a urine sample but it was contaminated. Urine culture pending. Drugs of abuse screen negative. Ethyl alcohol within normal limits. ----- Hypovolemia and acute renal failure. He has received 2 L sodium chloride bolus in the ER. An additional lactated Ringer's L. Sodium chloride infusion at 100 cc thereafter. Nephrology consultation conducted from the ER. I asked a lactic acid be checked. Will continue to trend lactic acid and renal function panel. Intake/output monitoring, daily weights. Renal dialysis diet. Spoke with the patient about the dangers of continued alcohol use disorder, he drinks 3-4 beers per day. Patient is amenable to cutting down/quitting. We also spoke about the morbidity associated with chronic heat exhaustion/hypovolemia causing multiple acute kidney injuries which may result in chronic kidney disease. The patient voices understanding. He denies tobacco or illicit drug use otherwise. Patient had 1 seizure 5 years prior. He has a follow up very shortly to be taken off of antiseizure medication. Will hold at this moment considering decreased GFR. Hold [employer] antihypertensives. Patient wishes to be full code. SCDs. Renal dialysis diet. Sodium chloride at 100 cc/hour. Hospitalist MIPS Advance Care Plan I have confirmed that the patient's Advanced Care Plan is present, code status is documented, or surrogate decision maker is listed in patient medical record.: Yes Medication Reconciliation I have utilized all available resources to obtain, update and review the patients current medications (includes all prescriptions, OTC, herbals, cannabis, and nutritional supplements).: Yes
--- NOTE | 2024-10-05 22:52 | ADMGEN ---
This patient, Rudi Eagle, was admitted to Medical Room 348-01. Patient/family oriented to hospital policies and general routines including ID bracelet, bed and alarms, visiting hours, pain management, procedures, bathroom and other care routines, personal items, smoking policy, room service/diet, and visiting hours. Information on how to activate the Rapid Response Team has been discussed. Patient/Family are encouraged to report perceived risks to care and to ask questions if they do not understand what they are told or what they should do.
[2024-10-05] MEDS: SODIUM CHLORIDE 0.9% IV 1,000 ML 100 ML IV CONT (23:17)
[2024-10-06 00:36] VITALS: BP 135/62; PULSE 67; RESP 20; TEMP 36.7; O2SAT 100
[2024-10-06 00:39] LABS: Anion Gap 20 mmol/L (4-12); Blood Urea Nitrogen 88 mg/dL (9-20); Calcium 8.8 mg/dL (8.4-10.2); Carbon Dioxide 15 mmol/L (22-30); Chloride 95 mmol/L (98-107); Glucose 112 mg/dL (65-110); Potassium 4.2 mmol/L (3.4-5.0); Sodium 130 mmol/L (137-145)
[2024-10-06 00:51] LABS: Estimated CRCL calculation 6 ml/min; Estimated Glomerular Filt Rate 3
[2024-10-06 06:00] VITALS: BP 120/62; PULSE 68; RESP 20; TEMP 36.5; O2SAT 100
[2024-10-06 06:18] LABS: Hematocrit 34.0 % (42.0-52.0); Hemoglobin 11.5 g/dL (14.0-18.0); Immature Granulocyte Percent A 0.8 % (0-0.5); Lymphocytes Absolute Auto 1.71 K/mm3 (0.9-3.2); Mean Corpuscular HGB Conc 33.8 g/dl (32-36); Mean Corpuscular Hemoglobin 32.9 pg (26-34); Mean Corpuscular Volume 97.1 fl (80-100); Nucleated Red Blood Cells Absolute Auto 0.000 K/mm3 (0.0-0.012); Nucleated Red Blood Cells Perc 0.0 % (0.0-0.2); Platelet Count Result 244 k/mm3 (150-375); Red Blood Count 3.50 M/mm3 (4.6-6.20); White Blood Count 6.1 K/mm3 (4.5-10.0)
[2024-10-06 06:36] LABS: Alanine Aminotransferase 32 U/L (6-50); Albumin Level 4.2 g/dL (3.5-5.1); Alkaline Phosphatase 70 U/L (38-126); Anion Gap 18 mmol/L (4-12); Aspartate Amino Transferase 22 U/L (17-59); Bilirubin,Total 0.7 mg/dL (0.2-1.3); Blood Urea Nitrogen 89 mg/dL (9-20); Calcium 9.0 mg/dL (8.4-10.2); Carbon Dioxide 16 mmol/L (22-30); Chloride 97 mmol/L (98-107); Glucose 76 mg/dL (65-110); Magnesium 2.6 mg/dL (1.6-2.3); Potassium 4.2 mmol/L (3.4-5.0); Sodium 131 mmol/L (137-145); Total Protein 6.8 g/dL (6.3-8.2)
[2024-10-06 06:50] LABS: Estimated CRCL calculation 8 ml/min; Estimated Glomerular Filt Rate 4
[2024-10-06 08:00] VITALS: BP 126/64; PULSE 71; RESP 18; TEMP 36.8; O2SAT 100
[2024-10-06] MEDS: SODIUM CHLORIDE 0.9% IV 1,000 ML 100 ML IV CONT ×2 (09:08→20:31)
--- NOTE | 2024-10-06 09:09 | PM.IMPN ---
Progress Note: A&P Assessment and Plan (1) Acute kidney failure: Qualifiers: Acute renal failure type: unspecified Qualified Code(s): N17.9 - Acute kidney failure, unspecified Code(s): N17.9 - Acute kidney failure, unspecified Status: Acute Assessment and Plan: -Improving with IVF -Renal u/s pending-- normal in 2021 -UA contaminated, will recheck -Check CK, salicylate level -Renally dose Keppra--will need increased once renal fx improves -nephrology consult -Anion gap improving-likely due to uremia (2) Alcohol dependence: Code(s): F10.20 - Alcohol dependence, uncomplicated Status: Acute Assessment and Plan: CIWA with ativan (low dose due to GRIS) for >8 -liver WNL -folate and thiamine ordered (3) Hypertension: Code(s): I10 - Essential (primary) hypertension Status: Acute Assessment and Plan: Well controlled -hold losartan due to GRIS (4) Seizure disorder: Code(s): G40.909 - Epilepsy, unspecified, not intractable, without status epilepticus Status: Acute Assessment and Plan: Continue keppra, renally dose -Spoke with pharmacy about dosing -Once GRIS resolves, will need adjusted -ativan PRN -possible seizure a week ago -check keppra level (5) High anion gap: Code(s): E87.8 - Other disorders of electrolyte and fluid balance, not elsewhere classified Status: Acute Assessment and Plan: Likely due to uremia -check salicylate level Time Spent With Patient Time with patient: 25 - 35 minutes Subjective Date/time seen: 10/06/24 09:09 Interval history: Pt is a 34-year-old male who is here for acute kidney injury. Patient was seen today and states he feels well today he is chest pain, shortness a nausea, vomiting, fevers or chills. He has no diarrhea or constipation. He is urinating without issue with no burning or blood noted. He states he works outside and felt very dehydrated these last couple weeks. His also reports a possible seizure last week. They were sitting in the car and he was the passenger and suddenly stopped talking and started drooling and was not responding for about 10 seconds and then completely resolved. He has only had 1 other seizure in the past which was tonic clonic in nature and he is well controlled on Keppra since then. He denies drug use or ingestion of other medications such as aspirin etc. No recent extensive work outs. Eating and drinking fine with no issues. Review of Systems Review of Systems: All systems reviewed & are unremarkable except as noted in HPI and below Exam Narrative: General:Well developed well nourished patient HEENT: Normocephalic, atraumatic, PERRL, Sclerae anicteric, oral mucosa moist. Neck: Supple Resp: CTA Heart: RRR with no murmurs Abd: Soft, nontender. No pain to palpation. Positive bowel sounds Skin: Warm and dry Extremities: No swelling, erythema or pain to palpation Neuro: Alert and Oriented x4 . CN 2-12 intact. No focal neurological deficits. Objective Data Vital Signs Vital Signs: Vital Signs - 24 hr 10/05/24 13:42 10/05/24 17:43 10/05/24 17:49 Temperature 97.9 F Pulse Rate 100 77 73 Respiratory Rate 18 18 14 Blood Pressure 108/61 98/59 L Pulse Oximetry 99 98 100 Oxygen Delivery Room Air 10/05/24 17:59 10/05/24 18:00 10/05/24 18:15 Temperature Pulse Rate 70 67 80 Respiratory Rate 18 13 Blood Pressure Pulse Oximetry 100 100 Oxygen Delivery 10/05/24 18:30 10/05/24 18:35 10/05/24 18:45 Temperature Pulse Rate 71 76 63 Respiratory Rate 18 14 14 Blood Pressure 91/53 L Pulse Oximetry 100 98 100 Oxygen Delivery 10/05/24 18:46 10/05/24 19:31 10/05/24 19:50 Temperature Pulse Rate 65 78 82 Respiratory Rate 16 21 H 17 Blood Pressure 100/51 L 106/42 L 154/138 H Pulse Oximetry 100 100 100 Oxygen Delivery 10/05/24 20:01 10/05/24 20:16 10/05/24 21:31 Temperature Pulse Rate 65 72 78 Respiratory Rate 18 14 21 H Blood Pressure 95/48 L 98/55 L 101/60 Pulse Oximetry 100 100 100 Oxygen Delivery 10/05/24 22:01 10/05/24 23:04 10/06/24 00:36 Temperature 98.1 F Pulse Rate 80 67 Respiratory Rate 18 20 Blood Pressure 101/49 L 135/62 Pulse Oximetry 99 100 Oxygen Delivery Room Air 10/06/24 06:00 10/06/24 08:00 Temperature 97.7 F 98.3 F Pulse Rate 68 71 Respiratory Rate 20 18 Blood Pressure 120/62 126/64 Pulse Oximetry 100 100 Oxygen Delivery Intake/Output Intake/Output: Intake & Output 10/03/24 10/04/24 10/05/24 10/06/24 23:59 23:59 23:59 23:59 Intake Total 3000 1985 Output Total 800 Balance 3000 1185 Meds/Results Medications: Active Medications Generic Name Dose Route Start Last Admin Trade Name Freq PRN Reason Stop Dose Admin Sodium Chloride 1,000 mls @ 100 mls/hr 10/05/24 20:50 10/06/24 09:08 Normal Saline Iv IV CONT 100 mls/hr .Q10H QUIRINO Administration Levetiracetam 250 mg 10/06/24 09:00 10/06/24 09:08 Levetiracetam 250 Mg Tablet PO 250 mg Q12HR QUIRINO Administration Lorazepam 0.5 mg 10/06/24 08:44 Lorazepam Inj (*Crx) 2 Mg/Ml Vial IV PUSH Q6H PRN CIWA 8 or greater or seizure Labs Labs: Laboratory Results - last 24 hr 10/05/24 10/05/24 10/06/24 15:38 19:51 00:13 WBC 11.1 H RBC 4.09 L Hgb 13.5 L Hct 39.6 L MCV 96.8 MCH 33.0 MCHC 34.1 RDW 11.9 Plt Count 349 D MPV 10.5 H Immature Gran % (Auto) 1.0 H Neut % (Auto) 76.2 H Lymph % (Auto) 11.4 L [place] % (Auto) 9.9 H Eos % (Auto) 1.0 Baso % (Auto) 0.5 Lymph # (Auto) 1.26 [place] # (Auto) 1.1 H Eos # (Auto) 0.1 Baso # (Auto) 0.1 Abs Immat Gran (auto) 0.11 H Absolute Neuts (auto) 8.5 H Absolute Nucleated RBC 0.000 Nucleated RBC % 0.0 Sodium 134 L 130 L Potassium 4.8 4.2 Chloride 91 L 95 L Carbon Dioxide 14 L 15 L Anion Gap 29 H 20 H BUN 90 H D 88 H Creatinine 19.29 H 17.15 H Estim Creat Clear Calc 5 6 Estimated GFR 3 L 3 L Glucose 91 112 H Lactic Acid 0.8 Calcium 10.0 8.8 Magnesium Total Bilirubin 0.9 AST 29 ALT 44 Alkaline Phosphatase 91 Total Creatine Kinase 53 L Total Protein 8.5 H Albumin 5.2 H Lipase 315 H Urine Color Yellow Urine Appearance Cloudy H Urine pH 5.0 Ur Specific [place] 1.023 Urine Protein 3+ H Urine Glucose (UA) Negative Urine Ketones 1+ H Ur Blood (Man) Negative Urine Nitrate Negative Urine Bilirubin Negative Urine Urobilinogen 1.0 Add Ur Microanalysis Reviewed Leukocyte Esterase Rfl Trace H Urine RBC 6-10 H Urine WBC 11-20 H Ur Squamous Epith Cells Many H Urine Bacteria None seen Urine Casts >20 Hyaline Casts 5-9 H Urine Mucus Present Ur Random Sodium 24 Urine Creatinine > 693.0 Urine Opiates Screen Negative Urine Methadone Screen Negative Ur Barbiturates Screen Negative Ur Phencyclidine Scrn Negative Ur Amphetamine Screen Negative U Benzodiazepines Scrn Negative Urine Cocaine Screen Negative U Cannabinoids Screen Negative Ethyl Alcohol < 10 10/06/24 05:26 WBC 6.1 RBC 3.50 L Hgb 11.5 L Hct 34.0 L MCV 97.1 MCH 32.9 MCHC 33.8 RDW 11.8 Plt Count 244 MPV 10.6 H Immature Gran % (Auto) 0.8 H Neut % (Auto) 57.4 Lymph % (Auto) 27.9 [place] % (Auto) 10.6 H Eos % (Auto) 2.6 Baso % (Auto) 0.7 Lymph # (Auto) 1.71 [place] # (Auto) 0.7 H Eos # (Auto) 0.2 Baso # (Auto) 0.0 Abs Immat Gran (auto) 0.05 H Absolute Neuts (auto) 3.5 Absolute Nucleated RBC 0.000 Nucleated RBC % 0.0 Sodium 131 L Potassium 4.2 Chloride 97 L Carbon Dioxide 16 L Anion Gap 18 H BUN 89 H Creatinine 13.75 H Estim Creat Clear Calc 8 Estimated GFR 4 L Glucose 76 Lactic Acid Calcium 9.0 Magnesium 2.6 H Total Bilirubin 0.7 AST 22 ALT 32 Alkaline Phosphatase 70 Total Creatine Kinase Total Protein 6.8 Albumin 4.2 Lipase Urine Color Urine Appearance Urine pH Ur Specific [place] Urine Protein Urine Glucose (UA) Urine Ketones Ur Blood (Man) Urine Nitrate Urine Bilirubin Urine Urobilinogen Add Ur Microanalysis Leukocyte Esterase Rfl Urine RBC Urine WBC Ur Squamous Epith Cells Urine Bacteria Urine Casts Hyaline Casts Urine Mucus Ur Random Sodium Urine Creatinine Urine Opiates Screen Urine Methadone Screen Ur Barbiturates Screen Ur Phencyclidine Scrn Ur Amphetamine Screen U Benzodiazepines Scrn Urine Cocaine Screen U Cannabinoids Screen Ethyl Alcohol Quality VTE Prophylaxis VTE prophylaxis: mechanical ordered
[2024-10-06 09:54] LABS: Salicylate < 1.0 mg/dL (2-20)
[2024-10-06] MEDS: THIAMINE HCL 100 MG TABLET PO (09:55)
[2024-10-06] MEDS: FOLIC ACID 1 MG TABLET PO (09:55)
--- NOTE | 2024-10-06 11:28 | P.CONNP_ITS ---
Assessment and Plan Assessment and plan (1) Acute kidney injury: Code(s): N17.9 - Acute kidney failure, unspecified Status: Acute Assessment and Plan: * no reported history of renal insufficiency at baseline * however, noted history of GRIS/ARF (with similar creatinine as on this admission) in November 2021 * last creatinine was 1.0mg/dl in November 2021 (on prior hospital discharge) * slow and steady improvement in renal function with IVFs * evaluation to date: * bland UA * urine electrolytes prerenal * CPK low * renal ultrasound pending * agree with holding TOSHIA-I * good urine output noted * follow trend of repeat labs (2) Hypertension: Code(s): I10 - Essential (primary) hypertension Status: Acute Assessment and Plan: * not an issue at this time * noted hypotension on admission * lisinopril on hold (give #1) * follow trend of hemodynamics I will continue to follow the patient with you while he remains hospitalized and make further recommendations as deemed necessary. Thank you for allowing me to participate in the care of this patient. L History of Present Illness Reason for Consult Consult date: 10/06/24 Reason for consult: acute renal failure Chief Complaint Chief complaint: Acute renal failure History of Present Illness Narrative: The patient is a 34-year-old male with a past medical history as outlined below who presented to [facility] Emergency Room yesterday with concerns of dizziness in association with possible dehydration. The patient reports that that the symptoms seemed to start about a week ago. Associated with the dizziness he also reports increased cramping in his shoulders and neck as well. 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 He gave no other symptoms with regard to syncope, shortness of breath, chest pain, vision changes, nausea, vomiting, or diarrhea. His , who was at bedside, did make a mention that he may have had a seizure last week as well but it is unclear if this is related to his current symptoms. In any case, given his concerns as mentioned, he presented to the emergency room for further assessment. Workup and evaluation emergency room was noted for relative hypotension but this seemed to respond to IV fluid boluses. routine blood test demonstrated a CBC with a white blood cell count 11.1, hemoglobin 13.5, sodium 134, chloride 91, bicarb 14, BUN of 90, and a creatinine of 19.29. His urine sample was suggestive of urinary tract infection but appeared to be contaminated. Urine drug screen was negative and his alcohol level was within normal limits. Given this marked decline in his kidney function as noted by these labs in association with his constellation of symptoms, he was continued on IV fluid resuscitation and subsequently admitted to the hospital for further evaluation and therapy. Since admission, he clinically feels better with improvement in his blood pressure and with down trending of his creatinine from 19.29 to 13.75mg/dl. He appears to be making fairly good urine output as well. Renal consultation was requested due to his acute kidney injury/acute renal failure. As mentioned, the patient reports no history of any type of renal insufficiency or chronic kidney disease Although he had a similar presentation a couple of years ago but his renal function normalized by the time of discharge. Furthermore, as already mentioned, his renal function appears to be slowly improving as noted by repeat labs since admission. His urine output also has picked up as well which is a favorable prognostic sign. Currently, at the time my visit, he appears to be in no acute distress. Review of Systems 2 Review of Systems: As per HPI. [facility] Past Medical History Medical History (Updated 10/07/24 @ 00:17 by Mine Ye MD) History of hypertension History of seizure disorder Surgical History Surgical History (Updated 12/03/21 @ 19:11 by Elke Ramos PA-C) History of appendectomy Family History Family History Other No pertinent family history Social History Social History (Updated 12/03/21 @ 19:11 by Elke Ramos PA-C) Smoking status: Former smoker Alcohol intake: current Drinks per week: 21 Substance use: never Lack of Transportation: No Lack of Food: Never True Current Housing: I Have Housing Concerned About Future Housing: No Difficulty Paying Gas/Electric Bills: No Difficulty Paying for Meds: No Currently Unemployed: No Education: High School Diploma/GED Difficulty w/ Childcare or Family Care: No Spiritual care concerns: No Meds Home Medications and Allergies Home Medications ?Medication ?Instructions ?Recorded ?Confirmed ?Type levetiracetam 750 mg tablet 750 mg PO BID 12/03/21 10/05/24 History lisinopril 10 mg tablet 10 mg PO DAILY 12/03/21 10/05/24 History Allergies Allergy/AdvReac Type Severity Reaction Status Date / Time No Known Allergies Allergy Verified 10/05/24 13:46 Vital Signs Vital Signs Temp Pulse Resp BP Pulse Ox O2 Del Method 10/06/24 09:21 Room Air 10/06/24 08:00 98.3 F 71 18 126/64 100 10/06/24 06:00 97.7 F 68 20 120/62 100 10/06/24 00:36 98.1 F 67 20 135/62 100 10/05/24 23:04 Room Air 10/05/24 22:01 80 18 101/49 L 99 10/05/24 21:31 78 21 H 101/60 100 10/05/24 20:16 72 14 98/55 L 100 10/05/24 20:01 65 18 95/48 L 100 10/05/24 19:50 82 17 154/138 H 100 10/05/24 19:31 78 21 H 106/42 L 100 Exam 2 Narrative: GENERAL APPEARANCE: well developed well nourished male in no acute distress HEENT: normocephalic, atraumatic, normal conjunctiva and sclera, nares patient NECK: no lymphadenopathy, thyromegaly, or JVD MOUTH: normal lips, teeth, and gums CARDIOVASCULAR: RRR, normal S1 and S2, no rub RESPIRATORY: clear to auscultation bilaterally ABDOMEN: soft, nontender, nondistended, positive bowel sounds present EXTREMITIES: no evidence of cyanosis, clubbing, or edema NEUROLOGICAL: alert and oriented x 3; CN II - XII intact bilaterally; no focal deficits noted Results Lab Results 10/07/24 05:46 10/07/24 05:46 Lab results: Most recent lab results Calcium 9.0 mg/dL (8.4-10.2) 10/06/24 05:26 Magnesium 2.6 mg/dL (1.6-2.3) H 10/06/24 05:26 Urine Creatinine > 693.0 mg/dL 10/05/24 19:51
[2024-10-06 15:10] LABS: Add Urine Microscopic? YES; Appearance Urine Clear (Clear); Glucose Urine UA Negative (Negative); Leukocyte Esterase Ur Negative LEU/UL (Negative); Nitrate Urine Negative (Negative); Non Pathogenic Casts 0-2; Specific Grav Ur 1.012 (1.001-1.035)
[2024-10-06 22:00] VITALS: BP 110/65; PULSE 78; RESP 20; TEMP 36.9; O2SAT 100
[2024-10-07 02:10] VITALS: BP 123/73; PULSE 66; RESP 20; TEMP 36.8; O2SAT 99
[2024-10-07] MEDS: SODIUM CHLORIDE 0.9% IV 1,000 ML 100 ML IV CONT (06:13)
[2024-10-07 07:01] LABS: Hematocrit 32.9 % (42.0-52.0); Hemoglobin 11.1 g/dL (14.0-18.0); Mean Corpuscular HGB Conc 33.7 g/dl (32-36); Mean Corpuscular Hemoglobin 32.9 pg (26-34); Mean Corpuscular Volume 97.6 fl (80-100); Platelet Count Result 231 k/mm3 (150-375); Red Blood Count 3.37 M/mm3 (4.6-6.20); White Blood Count 4.7 K/mm3 (4.5-10.0)
[2024-10-07 07:25] LABS: Creatine Kinase 35 U/L (55-170)
[2024-10-07 07:28] LABS: Albumin Level 3.9 g/dL (3.5-5.1); Anion Gap 8 mmol/L (4-12); Blood Urea Nitrogen 62 mg/dL (9-20); Calcium 9.1 mg/dL (8.4-10.2); Carbon Dioxide 23 mmol/L (22-30); Chloride 104 mmol/L (98-107); Estimated CRCL calculation 53 ml/min; Estimated Glomerular Filt Rate 40; Glucose 82 mg/dL (65-110); Potassium 4.3 mmol/L (3.4-5.0); Sodium 135 mmol/L (137-145)
[2024-10-07 08:12] VITALS: BP 128/78; PULSE 76; RESP 20; TEMP 36.7; O2SAT 99
[2024-10-07] MEDS: THIAMINE HCL 100 MG TABLET PO (08:27)
[2024-10-07] MEDS: FOLIC ACID 1 MG TABLET PO (08:27)
--- NOTE | 2024-10-07 14:41 | P.DS_ITS ---
DS: Admitting Diagnosis Discharge Date 10/07/2024 Admitting Diagnosis Hypovolemia/GRIS DS: Discharge Diagnosis Discharge Diagnosis (1) Acute kidney failure: Qualifiers: Acute renal failure type: unspecified Qualified Code(s): N17.9 - Acute kidney failure, unspecified Code(s): N17.9 - Acute kidney failure, unspecified Status: Acute (2) Alcohol dependence: Code(s): F10.20 - Alcohol dependence, uncomplicated Status: Acute (3) Hypertension: Code(s): I10 - Essential (primary) hypertension Status: Acute (4) Seizure disorder: Code(s): G40.909 - Epilepsy, unspecified, not intractable, without status epilepticus Status: Acute (5) High anion gap: Code(s): E87.8 - Other disorders of electrolyte and fluid balance, not elsewhere clas sified Status: Acute DS: Summary Hospital Course Reason for hospitalization: Hypovolemia/GRIS Hospital Course: Admission Patient was a 34-year-old male with a history of seizure disorder, alcohol use disorder, hypertension, history of pancreatitis and renal failure presents on 10/05/2024 to [facility] ER with the complaint of dehydration dizziness and cramping in his shoulder and neck muscles for about a week. The patient reports he has had a good appetite and hydrate very well and even more when he works. 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 He has had no syncope. He denies shortness of breath, chest pain, change in vision, nausea or vomiting or diarrhea. No bladder pain, no urinary symptoms. He has still been making urine Of note, in 2021 the patient presented with nausea and vomiting thought to be due to pancreatitis and he was in acute renal failure. He recovered from the renal failure completely. In the ED: On presentation is blood pressure is slightly low at 90 8/59. This did improve. WBC 11.1, hemoglobin 13.5, 134 sodium, chloride 91, bicarb 14, anion gap 29, BUN 90, serum creatinine 19.29, creatinine kinase 53, lipase 315. Hospital course: Patient was admitted to the medical unit and started on aggressive IV fluids for hypovolemia and acute renal failure. He has received 2 L sodium chloride bolus in the ER. An additional lactated Ringer's L. Sodium chloride infusion at 100 cc thereafter. Nephrology consultation conducted. Continued to trend lactic acid and renal function panel. Intake/output monitoring, daily weights. Renal dialysis diet. Previous provider spoke with the patient about the dangers of continued alcohol use disorder, he drinks 3-4 beers per day and morbidity associated with chronic heat exhaustion/hypovolemia causing multiple acute kidney injuries which may result in chronic kidney disease. Patient had 1 s eizure 5 years prior. He has a follow up very shortly to be taken off of antiseizure medication. Will hold at this moment considering decreased GFR. renal ultrasound was performed that showed no significant findings other than prostate megaly and diffuse hepatic steatosis with normal kidneys and without hydronephrosis, patient with overall improvement to symptoms and labs creatinine returned to 1.94 with aggressive IV fluids continue to encourage patient on oral hydration and ETOH sensation he understands that recurrent acute kidney injuries will lead to chronic kidney disease. Patient 82 and tolerating oral hydration feeling back to his baseline he was discharged to home reported he could resume his lisinopril and a few days after he gets follow-up BNP to re-evaluate his renal function I also discharge patient folic acid and thiamine and reinforced the need of EtOH cessation. Status at Discharge Functional status at discharge: independent ambulation Overall status at discharge: patient is back to baseline Time Spent with Patient Time attestation: Total time spent providing and/or coordinating discharge services: Time spent: Greater than 30 minutes Exam Narrative: General:Well developed well nourished patient HEENT: Normocephalic, atraumatic, PERRL, Sclerae anicteric, oral mucosa moist. Neck: Supple Resp: CTA Heart: RRR with no murmurs Abd: Soft, nontender. No pain to palpation. Positive bowel sounds Skin: Warm and dry Extremities: No swelling, erythema or pain to palpation Neuro: Alert and Oriented x4 . CN 2-12 intact. No focal neurological deficits. DS: Data Data Completed and Pending Labs on day of discharge: Labs from last 24 hours 10/07/24 10/06/24 05:46 14:30 WBC 4.7 RBC 3.37 L Hgb 11.1 L Hct 32.9 L MCV 97.6 MCH 32.9 MCHC 33.7 RDW 11.7 Plt Count 231 MPV 10.8 H Sodium 135 L Potassium 4.3 Chloride 104 Carbon Dioxide 23 Anion Gap 8 BUN 62 H D Creatinine 1.94 H Estim Creat Clear Calc 53 Estimated GFR 40 L Glucose 82 Calcium 9.1 Phosphorus 3.5 Total Creatine Kinase 35 L Albumin 3.9 Urine Color Yellow Urine Appearance Clear Urine pH 5.5 Ur Specific [place] 1.012 Urine Protein Trace Urine Glucose (UA) Negative Urine Ketones Negative Ur Blood (Man) Negative Urine Nitrate Negative Urine Bilirubin Negative Urine Urobilinogen 1.0 Leukocyte Esterase Rfl Negative Urine RBC 0-2 Urine WBC 0-5 Ur Squamous Epith Cells None seen Urine Bacteria None seen Urine Casts 0-2 Levetiracetam Pending Imaging Radiologist's impression: EXAMINATION: US renal BI DATE: 10/06/2024 14:59 INDICATION: Acute renal failure TECHNIQUE: Multiple ultrasound grayscale images of the kidneys were obtained. COMPARISON: None. FINDINGS: The right kidney measures 11.1 x 5.2 x 5.1 cm. The left kidney measures 12.7 x 5.4 x 4.6 cm. The kidneys demonstrate normal echogenicity. There is no hydronephrosis in either kidney. No stones identified. The bladder is normal. Prostatomegaly measuring 5.0 x 3.2 x 2.8 cm. Prominent increased hepatic echogenicity consistent with diffuse hepatic steatosis. IMPRESSION: 1. Normal kidneys without hydronephrosis. 2. Prostatomegaly. 3. Diffuse hepatic steatosis. Discharge Plan Discharge Attending physician on discharge: Sim Greer Consulting providers: Sanjuana Pretty; Mine Ye; Rosanna Mora; Rosamaria Lares; Lois Partida; Fer Tao Discharging Clinician: Vielka Hassan Anticipated Discharge Date/Time: 10/07/24 14:31 Patient Disposition: Home Activity: may shower Diet: as tolerated and other - see discharge instructions Discharge Instructions: 1). Dehydration/Acute kidney injury * Continue with aggressive hydration and avoid excessive heat * I have provided you with an order for follow-labs to re-evaluate your kidney function outpatient * continue to hold your Lisinopril until repeat labs have been performed to ensure renal function has completely resolved. * recommend Alcohol cessation 2). Seizures * Resume taking your Keppra * Follow-up with your neurologist outpatient How can you care for yourself at home? ? Keep track of any new symptoms or changes in your symptoms. ? Rest until you feel better. ? Be safe with medicines. Take your medicines exactly as prescribed. Call your doctor if you think you are having a problem with your medicine. ? Do not drive after taking a prescription pain medicine. ? Ensure to follow-up with primary care physician as indicated and provide updated medication list provided to you at discharge. When should you call for help? Call 911 anytime you think you may need emergency care. For example, call if: ? You passed out (lost consciousness). Call your doctor now or seek immediate medical care if: ? You have new symptoms like fever, difficulty breathing, Chest pain, vomiting, or rash. ? You have new or different pain. ? You are confused and are having trouble thinking clearly. ? Your symptoms are getting worse. Watch closely for changes in your health, and be sure to contact your doctor if: ? You do not get better as expected. 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 Held lisinopril 10 mg tablet 10 mg PO DAILY Hold Instructions: Resume on 10/14/24. Date of admission: 10/06/24 08:03 Primary Care Provider: PHYSICIAN,BUSINESS ADMINISTRATOR Admitting Provider: Nona Koroma Attending physician on admission: Vielka Hassan Condition: Improved Quality VTE Prophylaxis VTE prophylaxis: mechanical ordered -Patient's previous records reviewed on admission -ER notes reviewed in detail on admission -discussed all findings and current treatment plan with patient/Family/POA -Consultations reviewed for recommendations -Patient's disposition for safe discharge discussed with rn case manager Dictation performed by [employer] direct speech recognition software, therefore crm dynamics developer variants and typographical errors may occur. Hospitalist MIPS Heart Failure (Exclusion) Patient has history of Heart Transplant or Left Ventricular Assistive Device?: No IF YES, STOP HERE Heart Failure (Qualifier) Patient has current or prior documentation of LVEF less than or equal to 40%, or mod/servere depressed LVSF?: No IF NO, STOP HERE
== END 2024-10-07 15:57 | disposition home or self-care (01) | DRG 684 ==
LOC: ANHED 18:10 → ANH3MED 21:12
PROVIDERS: Physician Assistant; Registered Nurse; Admitting Provider General Practice; Emergency Provider Physician Assistant; Visit Provider Nurse Practitioner Family
DX: N17.9 Acute kidney failure, unspecified (principal); E86.1 Hypovolemia; I10 Essential (primary) hypertension; G40.909 Epilepsy, unspecified, not intractable, without status epilepticus; N40.0 Benign prostatic hyperplasia without lower urinary tract symptoms; F10.20 Alcohol dependence, uncomplicated; Z87.891 Personal history of nicotine dependence
CPT/HCPCS: 36415; 76775; 80048; 80053; 80069; 80177; 80179; 80307; 81001; 82077; 82550; 82570; 83605; 83690; 83735; 84300; 85025; 85027; 87086; 96360; 96361; 99291; A9270; G0378; J7030; J7120